=== PATIENT | male | born 1960 | race Caucasian/White ===

== ENCOUNTER 2016-07-22 08:14 | Day surgery (SDC) | payer BC, OTHER ==
[2016-07-17 12:20] VITALS: BMI 23.3
[~2016-07-22 08:14] MED LIST: LACTATED RINGERS 1,000 ML IV SCH; LIDOCAINE 1% 20 ML VIAL (10MG/ML) FOR IV START INTRADERMA PRN
[2016-07-22 08:48] VITALS: RESP 16; TEMP 97.8
[2016-07-22] MEDS ORDERED: PROPOFOL 10 MG/ML 20 ML VIAL IV ONE (09:07)
[2016-07-22] MEDS ORDERED: LIDOCAINE 1% INJ 10MG/ML (20 ML MDV) ONE (09:07)
--- NOTE | 2016-07-22 09:43 | P.PCN ---
Date of Procedure: 07/22/16 Procedure(s) Performed: Procedure: Colonoscopy and polypectomy. Preoperative diagnosis: Screening for neoplasia. Postoperative diagnosis: Distal sigmoid polyp snared but no large polyps or cancer. Preparation: HalfLytely prep. Sedation: Was provided by anesthesia. Brief clinical history: The patient is a 55-year-old male who is referred for this evaluation for screening for neoplasia age being his risk factor. He has no abdominal complaints, bleeding or anemia. This would be his first colonoscopy. Procedure: With the patient on his left lateral decubitus position and after informed consent and adequate sedation, the perianal area was inspected and it did not show any fissures or fistulas. There were no masses felt on digital rectal examination. The Olympus CFQ 160L video colonoscope was then inserted in the rectum in the usual fashion and advanced to the cecum. The mucosa appeared healthy. There was no obvious diverticular disease or other abnormalities with the exception of a small to medium-sized polyp in the distal sigmoid which was snared and retrieved by suction. I retroflexed endoscope in the rectum before the endoscope was withdrawn. The patient tolerated the procedure well. Plan: The patient was reassured. He will follow up with you as planned and I recommended repeat exam in 5 years.
[2016-07-22 10:07] VITALS: BP 138/87; PULSE 97
== END 2016-07-22 10:15 | disposition home or self-care (01) ==
LOC: ORWHC2ENDO 08:14
DX: Z12.11 Encounter for screening for malignant neoplasm of colon (principal); D12.5 Benign neoplasm of sigmoid colon; I10 Essential (primary) hypertension; Z79.899 Other long term (current) drug therapy; Z87.891 Personal history of nicotine dependence
CPT/HCPCS: 45385; 88305; J2001; J2704

== ENCOUNTER → 2017-06-26 | Outpatient (CLI) | payer OTHER ==
--- NOTE | 2017-06-26 11:25 | XR ---
EXAMINATION TYPE: XR chest 2V DATE OF EXAM: 06/26/2017 COMPARISON: 06/20/2017 TECHNIQUE: PA and lateral views submitted. HISTORY: Pneumothorax FINDINGS: Right-sided chest tube noted. A lucency in the right apex may be related to large bulla. No definite pleural reflection. Hypertrophic change of the spine. Left lung is clear. Hypertrophic and degenerati ve change of the spine noted. Postsurgical change left shoulder. IMPRESSION: 1. Right-sided chest tube. Lucency involving the right apex is stable but no definite pleural reflect ion and may represent a large bulla. No definite sizable pneumothorax. Consider CT scan for further a ssessment if clinically warranted.
== END | disposition home or self-care (01) ==
LOC: RADXRMAIN 10:49
PROVIDERS: ATTEND Family Medicine
DX: J93.9 Pneumothorax, unspecified (principal); Z97.8 Presence of other specified devices
CPT/HCPCS: 71046

== ENCOUNTER → 2017-08-17 | Outpatient (CLI) | payer OTHER ==
[2017-08-17 15:39] LABS: Appearance,Urine Clear (Clear); Basophils # (A) 0.1 k/uL (0-0.2); Basophils % (A) 1 %; Bilirubin,Urine Negative (Negative); Blood,Urine Negative (Negative); Color,Urine Light Yellow; Eosinophils # (A) 0.5 k/uL (0-0.7); Eosinophils % (A) 4 %; Glucose,Urine (UA) Negative (Negative); HCT 43.3 % (39.0-53.0); Ketones,Urine Negative (Negative); Leukocyte Esterase,Urine Negative (Negative); Lymphocytes # (A) 1.4 k/uL (1.0-4.8); Lymphocytes % (A) 13 %; MCH 29.5 pg (25.0-35.0); MCHC 32.4 g/dL (31.0-37.0); MCV 91.2 fL (80.0-100.0); Mean Platelet Volume 6.6; Monocytes # (A) 0.9 k/uL (0-1.0); Monocytes % (A) 8 %; Neutrophils % (A) 73 %; Nitrite,Urine Negative (Negative); Platelet Count 400 k/uL (150-450); Protein,Urine Negative (Negative); RBC 4.74 m/uL (4.30-5.90); Urobilinogen,Urine <2.0 mg/dL (<2.0); WBC 11.1 k/uL (3.8-10.6)
--- NOTE | 2017-08-17 15:40 | CT ---
EXAMINATION TYPE: CT chest w con DATE OF EXAM: 08/17/2017 COMPARISON: 06/26/2017 HISTORY: Spontaneous pneumothorax. CT DLP: 575 mGycm. Automated Exposure Control for Dose Reduction was Utilized. TECHNIQUE: CT scan of the thorax is performed following with IV Contrast, patient injected with 100 mL of Isovue M300. FINDINGS: LUNGS: There is extensive bullous emphysematous changes most pronounced within the right lung apex wi th lung markings throughout no evidence of pneumothorax. No focal consolidation, pleural effusion or pulmonary vascular congestion is seen. No bronchiectasis or peribronchial cuffing. Central airways pa tent. MEDIASTINUM: There are no greater than 1 cm hilar or mediastinal lymph nodes. No pericardial effusi on is seen. Mild coronary artery calcifications are noted. OTHER: There is heterogeneity of the left thyroid gland posteriorly incidentally noted minimal gyneco mastia seen bilaterally, right greater than left in a retroareolar location. IMPRESSION: 1. Severe bullous emphysematous disease most pronounced within the right lung apex with no evidence o f pneumothorax. 2. No focal consolidation, pleural effusion or pulmonary vascular congestion. 3. Heterogeneity of the left thyroid gland posteriorly. Thyroid ultrasound could be performed for fur ther evaluation.
[2017-08-17 15:48] LABS: Anion Gap 12 mmol/L; Blood Urea Nitrogen 14 mg/dL (9-20); Carbon Dioxide 27 mmol/L (22-30); Chloride 103 mmol/L (98-107); Potassium 4.4 mmol/L (3.5-5.1); Sodium 142 mmol/L (137-145)
== END | disposition home or self-care (01) ==
LOC: RADCTMAIN 14:33
PROVIDERS: ATTEND Thoracic Surgery (Cardiothoracic Vascular Surgery)
DX: J43.8 Other emphysema (principal); Z01.812 Encounter for preprocedural laboratory examination
CPT/HCPCS: 80051; 82565; 84520; 85025; 81003; 71260; 36415; Q9967

== ENCOUNTER 2017-08-20 05:41 | Inpatient (IN) | payer OTHER ==
[~2017-08-20 05:41] MED LIST changes: -LACTATED RINGERS 1,000 ML IV SCH; -LIDOCAINE 1% 20 ML VIAL (10MG/ML) FOR IV START INTRADERMA PRN; +ceFAZolin IN SWFI 2 GM/20 ML SYRINGE IVP ONE
[2017-08-20] MEDS ORDERED: ONDANSETRON 4 MG/2 ML VIAL IVP ONE (05:51)
[2017-08-20] MEDS ORDERED: MIDAZOLAM 2 MG/2 ML VIAL IV PRN (05:51)
[2017-08-20] MEDS ORDERED: LACTATED RINGERS 1,000 ML IV SCH (05:51)
[2017-08-20] MEDS ORDERED: DEXAMETHASONE SOD PHOSPHATE 10 MG/ML 1 ML VIAL IV ONE (05:51)
[2017-08-20] MEDS ORDERED: MORPHINE SULFATE 4 MG/ML SYRINGE IV PRN (05:51)
[2017-08-20] MEDS ORDERED: BUPIVACAINE (PF) 0.5% 30 ML VIAL SQ ONE ×2 (08:21)
--- NOTE | 2017-08-20 09:28 | P.OP ---
Date of Procedure: 08/20/17 Preoperative Diagnosis: Re-current right spontaneous pneumothorax, right apical blebs, COPD. Postoperative Diagnosis: Same Procedure(s) Performed: Right thoracoscopy with stapling of apical blebs and mechanical pleurodesis Implants: Pericardial reinforced naren were used Anesthesia: SANJAY Surgeon: Facundo Guthrie Rent [employer] Housing Investigator #1: James Patrick Estimated Blood Loss (ml): 10 IV fluids (ml): 800 Urine output (ml): 300 Pathology: other ([place] right upper lobe) Condition: stable Disposition: PACU Indications for Procedure: Patient is a 56-year-old male who initially presented with shortness of breath in early July he had known COPD he was found to have a large right-sided pneumothorax Thora vent was placed with good lung reexpansion there was a persistent air leak the patient was discharged home the airleak resolved Thora vent was discontinued in the office and follow-up chest x-ray demonstrated no evidence of pneumothorax about 2 weeks later the patient again became short of breath went to see his primary care physician. He had a moderate size pneumothorax. At that time patient refused admission to the hospital and was followed with serial chest x-rays and over a 2 week the pneumothorax improved markedly. Primary care physician sent him to see me in the office. My recommendation at that time was that he consider thoracoscopy with stapling of blebs as the likelihood of further recurrences of pneumothorax was very high. Patient was not immediately interested in surgery at that time and left the office to think about his options. Last week, he called the office and stated that he had decided to have the surgery. He was scheduled electively. Computed tomography scan was obtained which demonstrated resolution of the pneumothorax with a large area of complex blebs in the apex of the right upper lobe. Operative Findings: Large area of blebs in the apex of the left upper lobe was confirmed. There were mild soft adhesions of the upper lobe to the chest wall. There was a single dense adhesion at the very top of the apex of the lung. Description of Procedure: The patient was brought to the operating room and placed supine on the operating table, anesthetized and intubated with a double-lumen endotracheal tube. Tube was positioned with fiberoptic bronchoscopy, no endobronchial lesions were noted. Tube was secured and the patient was turned in the left lateral decubitus position and the right chest sterilely prepped and draped. 3 one-inch incisions were made in the fifth to sixth interspaces. These were carried down through skin and subcutaneous tissue into the right pleural space. Single lung ventilation had been initiated prior to entering the pleural space. Great care was taken not to injure the long at the entry site. On exploration of the chest, there were very mild adhesions of the upper lobe apical region to the surrounding ribs 1 through 3. This was easily taken down with blunt dissection. At the very apex of the lung there was a small less than 1 cm area of dense adhesion. This we took down the adhesions, it became quite evident where the bleb disease was. The remaining lung became atelectatic but the bleb disease area remained inflated. A clamp was placed across the base of the blebs in order to clearly demarcate where the normal lung tissue began and Endo ZORAIDA reinforced staple line was created proximal to the clamp in order to be sure that we were stapling through good lung tissue. Multiple firings of the stapler were required in order to completely resect the area of blebs. On completion of the resection of the blebs, the dense adhesion at the apex was taken down with electrocautery and the specimen was placed in an Endo Catch bag and brought out onto the field. Careful examination of the specimen confirmed that the staple line was through normal lung tissue and not through bleb. A 28-Slovak chest tube was placed through separate stab incision and positioned posterior apically. It was secured at the skin with a 0 Ethibond suture. The lung was inflated under thoracoscopic vision. No air leaks were noted. Rib blocks were performed at the level of the incisions with half percent Marcaine. Incisions were then closed with layers of Vicryl suture. Chest tube was connected to a Pleur-evac and skin glue and dry sterile dressings were applied. Patient was turned supine and extubated in the operating room, transferred to the recovery room in stable condition.
--- NOTE | 2017-08-20 09:43 | XR ---
EXAMINATION TYPE: XR chest 1V portable DATE OF EXAM: 08/20/2017 COMPARISON: 06/26/2017 HISTORY: Chest tube insertion TECHNIQUE: Single frontal view of the chest is obtained. FINDINGS: Emphysematous changes are noted there is a right-sided chest tube with approximately 5-10% right-sided pneumothorax. Subcutaneous emphysema noted. Left lung clear. Heart size stable. There is increased attenuation along the medial margin of the right upper lobe. IMPRESSION: 1. A 5-10% right apical pneumothorax. 2. Subsegmental consolidation medial aspect right upper lobe new from prior exam correlate clinically .
[2017-08-20] MEDS ORDERED: MORPHINE SULFATE 2 MG/ML SYRINGE IV PRN (13:10)
[2017-08-20] MEDS ORDERED: HYDROcodone/APAP 5-325MG 1 EACH TAB PO PRN ×2 (13:10)
[2017-08-20] MEDS ORDERED: ONDANSETRON 4 MG/2 ML VIAL IVP PRN (13:10)
[2017-08-20] MEDS ORDERED: IPRATROPIUM-ALBUTEROL 3 ML NEB IH PRN (13:10)
[2017-08-20] MEDS ORDERED: MORPHINE SULFATE 4MG/4ML SYRG IV PRN (13:16)
[2017-08-20] MEDS: IPRATROPIUM-ALBUTEROL 3 ML NEB IH SCH ×3 (13:29→19:32)
[2017-08-20] MEDS: KETOROLAC 30 MG/ML 1 ML VIAL IVP SCH ×2 (13:46→19:17)
--- NOTE | 2017-08-20 15:13 | P.CNPUL ---
History of Present Illness Consult date: 08/20/17 Requesting physician: Facundo Guthrie Reason for consult: other (Status post right thoracoscopy with stapling of apical blebs and mechanical pleurodesis. Postoperative day #0) Chief complaint: Recurrent episodes of spontaneous pneumothorax. History of present illness: This is a 56-year-old white male with known history of COPD, normally sees Dr. Stover for his COPD. Back in July, patient had a right sided spontaneous pneumothorax, and he required at the time a thoravent placement. Lung was expanded, however the patient continues to have persistent air leak and he was eventually discharged home with thoravent in place. Follow-up chest x-ray 2 weeks later revealed a moderate sized right-sided pneumothorax. Patient was readmitted to the hospital, and he was seen at the time by Dr. Guthrie who recommended thoracoscopy with stapling of blebs for prevention of further recurrence of pneumothorax. Patient has been doing well since then, but recently he called back Dr. Guthrie and agreed to go ahead with the surgery which was scheduled electively and was done today. Outpatient computed tomography scan of the chest showed complex blebs in the apex of the right upper lobe. Today the patient had uneventful surgery, he was transferred to [facility], and I was asked to see him on consultation. Chest tube is in place, air leak is noted in the Pleur-evac, patient is in no distress, chest x-ray shows complete expansion of the right lung and tip of the chest tube in the right apex. Patient is relatively asymptomatic. Denies any chest pain, no cough no wheezing no shortness of breath, no headache no blurred vision no dizziness no nausea no vomiting no abdominal pain. Review of Systems 14 point review of systems were obtained, please refer to pertinent positives and negatives in HPI. Past Medical History Past Medical History: COPD, Hypertension Additional Past Medical History / Comment(s): "FAST PULSE." RT SPONTANEOUS PNEUMOTHORAX 06/18/17, THEN LEAK 07/30/17. History of Any Multi-Drug Resistant Organisms: None Reported Past Surgical History: Orthopedic Surgery Additional Past Surgical History / Comment(s): LT shoulder surgery for dislocation, 07/2016 colonoscopy/benign polypectomy. RT CHEST TUBE. Past Anesthesia/Blood Transfusion Reactions: No Reported Reaction Smoking Status: Former smoker - Past Family History Father Family Medical History: Cancer Additional Family Medical History / Comment(s): Father of metastatic bone cancer at the age of 61 yrs. Mother Family Medical History: No Reported History Additional Family Medical History / Comment(s): Mother was healthy and lived to be 89yrs old. Medications and Allergies Home Medications Medication Instructions Recorded Confirmed Type Multivitamin [Men's Multi-Vitamin] 1 tab PO DAILY 07/17/16 08/20/17 History Aspirin EC [Ecotrin Low Dose] 81 mg PO DAILY 08/17/17 08/20/17 History Ipratropium [place] [Atrovent Hfa] 2 puff INHALATION RT-TID PRN 08/17/17 History Verapamil HCl [Verapamil ER] 240 mg PO DAILY 08/17/17 08/20/17 History Albuterol Inhaler [Ventolin Hfa 2 puff INHALATION RT-Q6H PRN 08/20/17 08/20/17 History Inhaler] Allergies Allergy/AdvReac Type Severity Reaction Status Date / Time No Known Allergies Allergy Verified 08/20/17 14:10 Physical Exam Vitals: Vital Signs Temp Pulse Pulse Pulse Resp BP Pulse Ox 08/20/17 13:42 70 08/20/17 13:34 68 08/20/17 13:14 18 130/66 99 08/20/17 12:30 67 16 131/79 100 08/20/17 12:00 58 L 16 138/86 100 08/20/17 11:45 54 L 16 119/79 100 08/20/17 11:30 67 16 130/77 99 08/20/17 11:15 55 L 16 133/77 99 08/20/17 11:00 61 16 128/79 98 08/20/17 10:45 57 L 16 135/74 98 08/20/17 10:30 68 16 148/82 93 L 08/20/17 10:15 72 16 143/84 94 L 08/20/17 10:00 71 16 140/80 96 08/20/17 09:47 69 16 155/79 100 08/20/17 09:34 66 16 157/74 100 08/20/17 09:18 97.3 F L 73 16 163/81 100 08/20/17 06:15 99.0 F 109 H 16 153/94 98 Intake and Output 08/20/17 08/20/17 08/20/17 06:59 14:59 22:59 Intake Total 500 600 Output Total 120 Balance 500 480 Intake: IV 500 600 Output: Urine 60 Pleural Fluid 40 Estimated Blood Loss 20 Physical Exam: Revealed a 56-year-old white male, very pleasant, in no distress. Head: Atraumatic normocephalic. Eyes: PERRLA, EOMI, no icterus. HEENT:[Neck is supple.] [No neck masses.] [No thyromegaly.] [No JVD.] Chest: [Clear throughout, no crackles, no rhonchi, no wheezes.] Right sided chest tube is noted, air leak was also noted. Cardiac Exam: [Normal S1 and S2, no S3 gallop, no murmur.] Abdomen: [Soft, nontender, no megaly, no rebound, no guarding, normal bowel sounds.] Extremities: [No clubbing, no edema, no cyanosis.] Neurological Exam: [No focal neurologic deficit.] Psychiatric: Appropriate affect and mood, normal mental status examination. Lymphatics: No lymphadenopathy. Results - Diagnostic Findings Chest x-ray: image reviewed (Postoperative chest x-ray showed a 5% right-sided apical pneumothorax, and chest tube in adequate placement.) Assessment and Plan Assessment: Impression: 1 status post right thoracoscopy with stapling of apical blebs and mechanical pleurodesis postoperative day #0. 2 recurrent episodes of right sided spontaneous pneumothorax 3 history of COPD 4 history of left shoulder dislocation 5 history of benign essential hypertension. Recommendation: Continue present treatment plan, continue chest tube on suction , bronchodilators, incentive spirometry, reevaluate patient and recheck chest x- ray in a.m. We'll continue to follow. Time with Patient: Greater than 30
[2017-08-20] MEDS: DEXTROSE 5%-0.45% NACL 1,000 ML IV SCH (17:35)
[2017-08-20] MEDS: ceFAZolin IN SWFI 2 GM/20 ML SYRINGE IVP SCH (17:35)
[2017-08-20] MEDS ORDERED: fentaNYL (PF) 50 MCG/ML 2 ML AMP ONE (17:52)
[2017-08-20] MEDS ORDERED: NEOSTIGMINE 1 MG/ML 10 ML VIAL ONE (17:52)
[2017-08-20] MEDS ORDERED: GLYCOPYRROLATE 0.2 MG/ML 2 ML VIAL ONE (17:52)
[2017-08-20] MEDS ORDERED: MIDAZOLAM 2 MG/2 ML VIAL ONE (17:52)
[2017-08-20] MEDS ORDERED: PHENYLEPHRINE-0.9% NACL SYG 1 MG/10 ML SYRINGE ONE (17:52)
[2017-08-20] MEDS ORDERED: PROPOFOL 10 MG/ML 20 ML VIAL IV ONE (17:52)
[2017-08-20] MEDS ORDERED: SUCCINYLCHOLINE CHLORIDE 100 MG/5 ML SYR IV ONE (17:52)
[2017-08-21] MEDS: KETOROLAC 30 MG/ML 1 ML VIAL IVP SCH ×5 (02:22→23:42)
[2017-08-21] MEDS: ceFAZolin IN SWFI 2 GM/20 ML SYRINGE IVP SCH (04:04)
[2017-08-21 06:43] LABS: Basophils % (A) 0 %; Eosinophils # (A) 0.3 k/uL (0-0.7); Eosinophils % (A) 2 %; HCT 37.3 % (39.0-53.0); HGB 12.3 gm/dL (13.0-17.5); Lymphocytes % (A) 8 %; MCH 30.5 pg (25.0-35.0); MCHC 33.1 g/dL (31.0-37.0); MCV 92.2 fL (80.0-100.0); Mean Platelet Volume 6.9; Monocytes % (A) 9 %; Neutrophils # (A) 9.2 k/uL (1.3-7.7); Neutrophils % (A) 80 %; Platelet Count 323 k/uL (150-450); RBC 4.05 m/uL (4.30-5.90); WBC 11.5 k/uL (3.8-10.6)
[2017-08-21] MEDS: IPRATROPIUM-ALBUTEROL 3 ML NEB IH SCH ×4 (07:53→20:08)
[2017-08-21] MEDS: ASPIRIN 81 MG PO SCH (08:04)
[2017-08-21] MEDS: VERAPAMIL SR 240 MG TABLET.ER PO SCH (08:04)
[2017-08-21] MEDS: MULTIVITAMINS, THERA 1 EACH TAB PO SCH (08:04)
[2017-08-21] MEDS ORDERED: MORPHINE ORAL SOLN 10 MG/5 ML CUP PO PRN (08:10)
--- NOTE | 2017-08-21 09:13 | XR ---
EXAMINATION TYPE: XR chest 1V DATE OF EXAM: 08/21/2017 COMPARISON: 08/21/2017 HISTORY: Post VATS TECHNIQUE: Single frontal view of the chest is obtained. FINDINGS: Right-sided chest tube seen with persistent right upper lobe consolidation. Approximate 5- 10% right-sided pneumothorax stable. Left lung clear. Heart size stable. Tiny amount of subcutaneous emphysema noted. Arthropathy of the shoulders. IMPRESSION: 1. Stable right-sided pneumothorax.
[2017-08-21] MEDS: HEPARIN SODIUM,PORCINE 5,000 UNIT/ML 1 ML VIAL SQ SCH ×3 (09:46→23:43)
--- NOTE | 2017-08-21 12:02 | P.PN ---
Subjective Progress Note Date: 08/21/17 Principal diagnosis: Recurrent spontaneous pneumothoraces. Status post right thoracoscopy with stapling of apical blebs and mechanical pleurodesis. This is a 56-year-old white male with known history of COPD, normally sees Dr. Stover for his COPD. Back in July, patient had a right sided spontaneous pneumothorax, and he required at the time a thoravent placement. Lung was expanded, however the patient continues to have persistent air leak and he was eventually discharged home with thoravent in place. Follow-up chest x-ray 2 weeks later revealed a moderate sized right-sided pneumothorax. Patient was readmitted to the hospital, and he was seen at the time by Dr. Guthrie who recommended thoracoscopy with stapling of blebs for prevention of further recurrence of pneumothorax. Patient has been doing well since then, but recently he called back Dr. Guthrie and agreed to go ahead with the surgery which was scheduled electively and was done today. Outpatient computed tomography scan of the chest showed complex blebs in the apex of the right upper lobe. Today the patient had uneventful surgery, he was transferred to [facility], and I was asked to see him on consultation. Chest tube is in place, air leak is noted in the Pleur-evac, patient is in no distress, chest x-ray shows complete expansion of the right lung and tip of the chest tube in the right apex. Patient is relatively asymptomatic. Denies any chest pain, no cough no wheezing no shortness of breath, no headache no blurred vision no dizziness no nausea no vomiting no abdominal pain. The patient is seen again today 08/21/2017 in follow-up on the selective care unit. Postoperative day #1. He is currently awake and alert in no acute distress. He denies any worsening shortness of breath, cough or congestion. He is maintaining good O2 saturations in the upper 90s on room air. His been afebrile. Hemodynamically stable. White count 11.5. Hemoglobin 12.3. Some discomfort at the surgical site. Today's chest x-ray reveals a stable right- sided pneumothorax. 5-10%. Along with persistent right upper lobe consolidation. Right-sided chest tube in place. Objective - Vital Signs Vital signs: Vital Signs Temp 97 F L 08/21/17 07:59 Pulse 88 08/21/17 11:47 Resp 20 08/21/17 07:59 BP 115/60 08/21/17 07:59 Pulse Ox 97 08/21/17 07:59 Intake & Output 08/20/17 08/21/17 08/21/17 18:59 06:59 18:59 Intake Total 837 Output Total 180 1600 250 Balance 657 -1600 -250 Weight 75 kg Intake: IV 600 Oral 237 Output: Chest Tube Drainage 60 100 Chest Tube Right Lateral 60 100 Chest Drainage 150 Right Anterior Chest 150 Urine 60 1600 Stool 0 0 Pleural Fluid 40 Estimated Blood Loss 20 Other: # Voids 0 1 # Bowel Movements 0 0 - Exam GENERAL EXAM: Alert, active, comfortable in no apparent distress. HEAD: Normocephalic. EYES: Normal reaction of pupils, equal size. NOSE: Clear with pink turbinates. THROAT: No erythema or exudates. NECK: No masses, no JVD. CHEST: No chest wall deformity. Right sided chest tube in place. LUNGS: Equal air entry with crackles in the right base. Diminished. CVS: S1 and S2 normal with no audible murmur, regular rhythm. ABDOMEN: No hepatosplenomegaly, normal bowel sounds, no guarding or rigidity. SPINE: No scoliosis or deformity SKIN: No rashes CENTRAL NERVOUS SYSTEM: No focal deficits, tone is normal in all 4 extremities. EXTREMITIES: There is no peripheral edema. No clubbing, no cyanosis. Peripheral pulses are intact. - Labs CBC & Chem 7: 08/21/17 06:08 Labs: Abnormal Lab Results - Last 24 Hours (Table) 08/21/17 Range/Units 06:08 WBC 11.5 H (3.8-10.6) k/uL RBC 4.05 L (4.30-5.90) m/uL Hgb 12.3 L (13.0-17.5) gm/dL Hct 37.3 L (39.0-53.0) % Neutrophils # 9.2 H (1.3-7.7) k/uL Assessment and Plan Assessment: Impression: 1 status post right thoracoscopy with stapling of apical blebs and mechanical pleurodesis postoperative day #1. 2 recurrent episodes of right sided spontaneous pneumothorax previous Thora- Vent placement 3 history of COPD 4 history of left shoulder dislocation 5 history of benign essential hypertension. Recommendation: The patient was seen and evaluated by Dr. Disla. Chest x-ray was reviewed. Patient's chest tube remains to suction. Positive air leak. Repeat a chest x- ray in the a.m. Continue bronchodilators. Continue to encourage increased use of the incentive spirometer and cough and deep breathing exercises. We'll continue to follow and make further recommendations based on his clinical status. I, the cosigning physician, performed a history & physical examination of the patient. Lungs sounds have crackles in the right posterior base. Diminished. Maintaining good O2 saturations in the 90s on room air. I discussed the assessment and plan of care with my nurse practitioner, Nicolasa Mandel. I attest to the above note as dictated by her.
--- NOTE | 2017-08-21 14:10 | P.PN ---
Subjective Progress Note Date: 08/21/17 Principal diagnosis: Recurrent right spontaneous pneumothorax, right apical blebs, COPD, history of benign essential hypertension, and history of left shoulder dislocation. POD #1 right thoracoscopy with stapling of apical blebs and mechanical pleurodesis. Objective - Vital Signs Vital signs: Vital Signs Temp 97 F L 08/21/17 07:59 Pulse 88 08/21/17 11:47 Resp 20 08/21/17 07:59 BP 115/60 08/21/17 07:59 Pulse Ox 97 08/21/17 07:59 Intake & Output 08/20/17 08/21/17 08/21/17 18:59 06:59 18:59 Intake Total 837 Output Total 180 1600 250 Balance 657 -1600 -250 Weight 75 kg Intake: IV 600 Oral 237 Output: Chest Tube Drainage 60 100 Chest Tube Right Lateral 60 100 Chest Drainage 150 Right Anterior Chest 150 Urine 60 1600 Stool 0 0 Pleural Fluid 40 Estimated Blood Loss 20 Other: # Voids 0 1 # Bowel Movements 0 0 - Constitutional General appearance: Present: cooperative, no acute distress, thin - EENT ENT: Present: hearing grossly normal - Neck Details: No JVD, no lymphadenopathy, neck is supple, no stridor. - Respiratory Details: Respirations are symmetrical and nonlabored. Lungs sounds with expiratory wheezes throughout, diminished bilateral bases. Oxygen saturations are 99% on 2 L nasal cannula. He is achieving 2500 mL on his incentive spirometry. Right pleural chest tube to low continuous wall suction -20 cm H2O. Continuous air leak present. Draining thin serosanguineous drainage. 210 mL output in the last 24 hours. - Cardiovascular Details: Regular rhythm and rate. S1 and S2 present, negative for S3, gallop or murmur. Remote telemetry showing normal sinus rhythm heart rate 83. Knee-high MARYSE hose and sequential compression devices in place was bilateral lower extremities. No edema present. - Gastrointestinal Gastrointestinal Comment(s): Abdomen is soft, nontender and nondistended. Active bowel sounds to all 4 abdominal quadrants. Tolerating oral intake. Passing flatus. - Genitourinary Genitourinary Comment(s): Adequate urine output. Clear yellow urine. 1200 mL of urine in the last 8 hours. - Integumentary Integumentary Comment(s): Skin is warm and dry. No clubbing or cyanosis present. Right chest incisions clean dry and approximated. No drainage present. Dressings clean and dry. - Neurologic Neurologic: Present: CNII-XII intact - Musculoskeletal Musculoskeletal: Present: gait normal, strength equal bilaterally - Psychiatric Psychiatric: Present: A&O x's 3, appropriate affect, intact judgment & insight - Allied health notes Allied health notes reviewed: nursing - Labs CBC & Chem 7: 08/21/17 06:08 Labs: Abnormal Lab Results - Last 24 Hours (Table) 08/21/17 Range/Units 06:08 WBC 11.5 H (3.8-10.6) k/uL RBC 4.05 L (4.30-5.90) m/uL Hgb 12.3 L (13.0-17.5) gm/dL Hct 37.3 L (39.0-53.0) % Neutrophils # 9.2 H (1.3-7.7) k/uL - Imaging and Cardiology Chest x-ray: report reviewed, image reviewed Assessment and Plan (1) Pneumothorax, right Current Visit: Yes Status: Acute Code(s): J93.9 - PNEUMOTHORAX, UNSPECIFIED SNOMED Code(s): 375570787 (2) COPD (chronic obstructive pulmonary disease) Current Visit: Yes Status: Acute Code(s): J44.9 - CHRONIC OBSTRUCTIVE PULMONARY DISEASE, UNSPECIFIED SNOMED Code(s): 52436844 (3) Hypertension Current Visit: No Status: Chronic Code(s): I10 - ESSENTIAL (PRIMARY) HYPERTENSION SNOMED Code(s): 98694718 Plan: 1. Encourage use of his incentive spirometry every hour while awake. 2. Pain management per when necessary orders. 3. Pulmonary management per Dr. Disla's recommendations. 4. Continue his right pleural chest tube to low continuous wall suction for another 24 hours. We will try his chest tube on water seal in the a.m. 5. Surgical pathology results pending. 6. GI and DVT prophylaxis. 7. More recommendations to follow as patient progresses in his care. Time with Patient: Greater than 30
[2017-08-21] MEDS: DEXTROSE 5%-0.45% NACL 1,000 ML IV SCH (15:02)
[2017-08-22] MEDS: KETOROLAC 30 MG/ML 1 ML VIAL IVP SCH ×4 (05:45→23:37)
[2017-08-22 06:41] LABS: Basophils % (A) 0 %; Eosinophils # (A) 0.5 k/uL (0-0.7); Eosinophils % (A) 5 %; HCT 36.3 % (39.0-53.0); Lymphocytes # (A) 0.8 k/uL (1.0-4.8); Lymphocytes % (A) 8 %; MCH 30.6 pg (25.0-35.0); MCHC 33.1 g/dL (31.0-37.0); MCV 92.5 fL (80.0-100.0); Mean Platelet Volume 6.8; Monocytes # (A) 0.5 k/uL (0-1.0); Monocytes % (A) 5 %; Neutrophils # (A) 7.9 k/uL (1.3-7.7); Neutrophils % (A) 80 %; Platelet Count 324 k/uL (150-450); RBC 3.93 m/uL (4.30-5.90); RDW 14.2 % (11.5-15.5); WBC 9.8 k/uL (3.8-10.6)
[2017-08-22 07:04] LABS: ALT 31 U/L (21-72); AST 25 U/L (17-59); Alkaline Phosphatase 60 U/L (38-126); Anion Gap 9 mmol/L; Blood Urea Nitrogen 13 mg/dL (9-20); Calcium 8.8 mg/dL (8.4-10.2); Carbon Dioxide 25 mmol/L (22-30); Chloride 104 mmol/L (98-107); Glucose 96 mg/dL (74-99); Potassium 4.6 mmol/L (3.5-5.1); Sodium 138 mmol/L (137-145); Total Bilirubin 0.4 mg/dL (0.2-1.3); Total Protein 5.4 g/dL (6.3-8.2)
--- NOTE | 2017-08-22 07:08 | XR ---
EXAMINATION TYPE: XR chest 1V DATE OF EXAM: 08/22/2017 HISTORY: post VATS. REFERENCE: Previous study dated 08/21/2017. FINDINGS: Right pleural drain remains in place. There has developed significant subcutaneous emphysem a on the right. No definite residual pneumothorax is seen. Limited there is some volume loss in the r ight lung. The left lung is clear. The heart is not enlarged. I suspect a tiny right-sided effusion. IMPRESSION: 1. RESOLUTION OF THE PATIENT'S RIGHT-SIDED PNEUMOTHORAX. 2. WORSENING SUBCUTANEOUS EMPHYSEMA. 3. VOLUME LOSS, RIGHT LUNG. 4. I SUSPECT A SMALL RIGHT-SIDED EFFUSION.
[2017-08-22] MEDS: IPRATROPIUM-ALBUTEROL 3 ML NEB IH SCH ×4 (07:09→19:54)
[2017-08-22] MEDS: HEPARIN SODIUM,PORCINE 5,000 UNIT/ML 1 ML VIAL SQ SCH ×3 (08:47→23:38)
[2017-08-22] MEDS: VERAPAMIL SR 240 MG TABLET.ER PO SCH (08:47)
[2017-08-22] MEDS: ASPIRIN 81 MG PO SCH (08:47)
--- NOTE | 2017-08-22 10:25 | P.PN ---
Subjective Progress Note Date: 08/22/17 Principal diagnosis: Recurrent right spontaneous pneumothorax, right apical blebs, COPD, history of benign essential hypertension, EtOH abuse drinks 3-4 beers per day and history of left shoulder dislocation. POD #1 right thoracoscopy with stapling of apical blebs and mechanical pleurodesis. Patient is sitting up to these bedside. He is in no acute distress. He reports that he drinks about 3-4 beers a day and is worried about going into DTs. He denies any complaints of shortness of breath or pain at this time. He remains with a persistent air leak to his chest tube. He also reports that he feels some crackling to his right chest and right neck under his skin. Objective - Vital Signs Vital signs: Vital Signs Temp 97.0 F L 08/22/17 08:00 Pulse 105 H 08/22/17 08:00 Resp 18 08/22/17 08:00 BP 137/81 08/22/17 08:00 Pulse Ox 94 L 08/22/17 08:00 Intake & Output 08/21/17 08/22/17 08/22/17 18:59 06:59 18:59 Intake Total 240 240 Output Total 1050 1710 Balance -1050 -1470 240 Weight 73.9 kg Intake: Oral 240 240 Output: Chest Tube Drainage 100 60 Chest Tube Right Lateral 100 60 Chest Drainage 150 Right Anterior Chest 150 Urine 800 1650 Stool 0 0 Other: Voiding Method Toilet Toilet Urinal Urinal # Voids 1 - Constitutional General appearance: Present: cooperative, no acute distress - EENT ENT: Present: hearing grossly normal - Neck Details: No JVD, no lymphadenopathy. Subcu emphysema present to his right neck and face. - Respiratory Details: Lung sounds with expiratory wheezes throughout, diminished to his bilateral bases. Respirations are symmetrical nonlabored. Oxygen saturation are 95% on 2 L nasal cannula. He is achieving 2500 mL on his incentive spirometry. Subcu emphysema present to his right anterior and posterior chest, right neck and right face. Right pleural chest tube remains in place to low continuous wall suction -20 cm H2O. Continuous air leak present. 190 mL of thin serosanguineous drainage in the last 24 hours. Chest x-ray from this a.m. demonstrates worsening subcutaneous emphysema on the right. - Cardiovascular Details: Regular rhythm and rate. S1 and S2 present, negative for S3, gallop or murmur. Remote telemetry showing sinus tachycardia heart rate 112. No edema present. Knee-high MARYSE hose and sequential compression devices in place to his bilateral lower extremities. - Gastrointestinal Gastrointestinal Comment(s): Abdomen is soft, nontender nondistended. Active bowel sounds to all 4 abdominal quadrants. Passing flatus. - Genitourinary Genitourinary Comment(s): Adequate urine output. Voiding clear mt urine. 850 mL output in the last 8 hours. - Integumentary Integumentary Comment(s): Skin is warm and dry. No clubbing or cyanosis present. Right chest incisions clean dry and well approximated. No drainage or redness present. - Neurologic Neurologic: Present: CNII-XII intact - Musculoskeletal Musculoskeletal: Present: gait normal, strength equal bilaterally - Psychiatric Psychiatric: Present: A&O x's 3, appropriate affect, intact judgment & insight - Allied health notes Allied health notes reviewed: nursing - Labs CBC & Chem 7: 08/22/17 05:46 08/22/17 05:46 Labs: Abnormal Lab Results - Last 24 Hours (Table) 08/22/17 08/22/17 Range/Units 05:46 05:46 RBC 3.93 L (4.30-5.90) m/uL Hgb 12.0 L (13.0-17.5) gm/dL Hct 36.3 L (39.0-53.0) % Neutrophils # 7.9 H (1.3-7.7) k/uL Lymphocytes # 0.8 L (1.0-4.8) k/uL Creatinine 0.62 L (0.66-1.25) mg/dL Total Protein 5.4 L (6.3-8.2) g/dL Albumin 3.0 L (3.5-5.0) g/dL - Imaging and Cardiology Chest x-ray: report reviewed, image reviewed Assessment and Plan (1) Pneumothorax, right Current Visit: Yes Status: Acute Code(s): J93.9 - PNEUMOTHORAX, UNSPECIFIED SNOMED Code(s): 888188821 (2) COPD (chronic obstructive pulmonary disease) Current Visit: Yes Status: Acute Code(s): J44.9 - CHRONIC OBSTRUCTIVE PULMONARY DISEASE, UNSPECIFIED SNOMED Code(s): 52115239 (3) Hypertension Current Visit: No Status: Chronic Code(s): I10 - ESSENTIAL (PRIMARY) HYPERTENSION SNOMED Code(s): 28778892 Plan: 1. Encourage use of his incentive spirometry every hour while awake. 2. Pain management per when necessary orders. 3. Pulmonary management per Dr. Disla's recommendations. 4. Continue his right pleural chest tube to low continuous wall suction. 5. Surgical pathology results pending. 6. GI and DVT prophylaxis. 7. We will add to his evening meal 1 can of [place] Light as the patient drinks 3 or 4 beers daily. He was started on folic acid 1 mg by mouth daily at noon and thiamine 100 mg by mouth daily at noon. 8. We will monitor daily chest x-rays. 9. More recommendations to follow as patient progresses in his care. Time with Patient: Greater than 30
--- NOTE | 2017-08-22 11:54 | P.PN ---
Subjective Progress Note Date: 08/22/17 Principal diagnosis: Recurrent spontaneous pneumothoraces. Status post right thoracoscopy with stapling of apical blebs and mechanical pleurodesis. This is a 56-year-old white male with known history of COPD, normally sees Dr. Stover for his COPD. Back in July, patient had a right sided spontaneous pneumothorax, and he required at the time a thoravent placement. Lung was expanded, however the patient continues to have persistent air leak and he was eventually discharged home with thoravent in place. Follow-up chest x-ray 2 weeks later revealed a moderate sized right-sided pneumothorax. Patient was readmitted to the hospital, and he was seen at the time by Dr. Guthrie who recommended thoracoscopy with stapling of blebs for prevention of further recurrence of pneumothorax. Patient has been doing well since then, but recently he called back Dr. Guthrie and agreed to go ahead with the surgery which was scheduled electively and was done today. Outpatient computed tomography scan of the chest showed complex blebs in the apex of the right upper lobe. Today the patient had uneventful surgery, he was transferred to [facility], and I was asked to see him on consultation. Chest tube is in place, air leak is noted in the Pleur-evac, patient is in no distress, chest x-ray shows complete expansion of the right lung and tip of the chest tube in the right apex. Patient is relatively asymptomatic. Denies any chest pain, no cough no wheezing no shortness of breath, no headache no blurred vision no dizziness no nausea no vomiting no abdominal pain. The patient is seen again today 08/21/2017 in follow-up on the selective care unit. Postoperative day #1. He is currently awake and alert in no acute distress. He denies any worsening shortness of breath, cough or congestion. He is maintaining good O2 saturations in the upper 90s on room air. His been afebrile. Hemodynamically stable. White count 11.5. Hemoglobin 12.3. Some discomfort at the surgical site. Today's chest x-ray reveals a stable right- sided pneumothorax. 5-10%. Along with persistent right upper lobe consolidation. Right-sided chest tube in place. The patient is seen again today 08/22/2017 in follow-up on the selective care unit. He is currently awake and alert in no acute distress. He denies any worsening shortness of breath cough or congestion. Right-sided chest tube remains in place. There is still a small air leak. Chest x-ray does reveal resolution of the right-sided pneumothorax. There is some small right pleural effusion. There is increasing subcutaneous emphysema noted. Maintaining good O2 saturations in the 90s on 2 L/m per nasal cannula. He is afebrile. Hemodynamically stable. White count 9.8. Hemoglobin 12.0. Creatinine 0.62. Objective - Vital Signs Vital signs: Vital Signs Temp 97.0 F L 08/22/17 08:00 Pulse 80 08/22/17 11:46 Resp 18 08/22/17 08:00 BP 137/81 08/22/17 08:00 Pulse Ox 94 L 08/22/17 08:00 Intake & Output 08/21/17 08/22/17 08/22/17 18:59 06:59 18:59 Intake Total 240 400 Output Total 1050 1710 Balance -1050 -1470 400 Weight 73.9 kg Intake: Intake, IV Titration 160 Amount Dextrose 5%-0.45% NaCl 1, 160 000 ml @ 40 mls/hr IV . Q24H [facility] Rx#:[id number] Oral 240 240 Output: Chest Tube Drainage 100 60 Chest Tube Right Lateral 100 60 Chest Drainage 150 Right Anterior Chest 150 Urine 800 1650 Stool 0 0 Other: Voiding Method Toilet Toilet Urinal Urinal # Voids 1 1 - Exam GENERAL EXAM: Alert, active, comfortable in no apparent distress. HEAD: Normocephalic. EYES: Normal reaction of pupils, equal size. NOSE: Clear with pink turbinates. THROAT: No erythema or exudates. NECK: No masses, no JVD. CHEST: No chest wall deformity. Right sided chest tube in place. Subcutaneous emphysema palpated. LUNGS: Equal air entry with crackles in the right base. Diminished. CVS: S1 and S2 normal with no audible murmur, regular rhythm. ABDOMEN: No hepatosplenomegaly, normal bowel sounds, no guarding or rigidity. SPINE: No scoliosis or deformity SKIN: No rashes CENTRAL NERVOUS SYSTEM: No focal deficits, tone is normal in all 4 extremities. EXTREMITIES: There is no peripheral edema. No clubbing, no cyanosis. Peripheral pulses are intact. - Labs CBC & Chem 7: 08/22/17 05:46 08/22/17 05:46 Labs: Abnormal Lab Results - Last 24 Hours (Table) 08/22/17 08/22/17 Range/Units 05:46 05:46 RBC 3.93 L (4.30-5.90) m/uL Hgb 12.0 L (13.0-17.5) gm/dL Hct 36.3 L (39.0-53.0) % Neutrophils # 7.9 H (1.3-7.7) k/uL Lymphocytes # 0.8 L (1.0-4.8) k/uL Creatinine 0.62 L (0.66-1.25) mg/dL Total Protein 5.4 L (6.3-8.2) g/dL Albumin 3.0 L (3.5-5.0) g/dL Assessment and Plan Assessment: Impression: 1 status post right thoracoscopy with stapling of apical blebs and mechanical pleurodesis. Subcutaneous emphysema noted. Chest x-ray revealing improved pneumothorax. 2 recurrent episodes of right sided spontaneous pneumothorax previous Thora- Vent placement 3 history of COPD 4 history of left shoulder dislocation 5 history of benign essential hypertension. Recommendation: The patient was seen and evaluated by Dr. Disla. Chest x-ray was reviewed. Positive air leak still. Repeat a chest x-ray in the a.m. Continue bronchodilators. Continue to encourage increased use of the incentive spirometer and cough and deep breathing exercises. We will increase his activity as tolerated. We'll continue to follow and make further recommendations based on his clinical status. I, the cosigning physician, performed a history & physical examination of the patient. Lungs sounds have crackles in the right posterior base. Diminished. Maintaining good O2 saturations in the 90s on 2 L/m per nasal cannula. I discussed the assessment and plan of care with my nurse practitioner, Nicolasa Mandel. I attest to the above note as dictated by her.
[2017-08-22] MEDS: FOLIC ACID 1 MG TAB PO SCH (12:01)
[2017-08-22] MEDS: THIAMINE 100 MG TAB PO SCH (12:01)
[2017-08-22] MEDS: MULTIVITAMINS, THERA 1 EACH TAB PO SCH (12:01)
[2017-08-22 12:30] VITALS: BMI 26.3
[2017-08-23] MEDS: KETOROLAC 30 MG/ML 1 ML VIAL IVP SCH ×4 (06:12→23:27)
[2017-08-23 06:16] LABS: Basophils % (A) 0 %; Eosinophils # (A) 0.7 k/uL (0-0.7); Eosinophils % (A) 6 %; HCT 34.4 % (39.0-53.0); Lymphocytes # (A) 0.8 k/uL (1.0-4.8); Lymphocytes % (A) 7 %; MCH 29.6 pg (25.0-35.0); MCHC 32.1 g/dL (31.0-37.0); MCV 92.1 fL (80.0-100.0); Monocytes # (A) 0.7 k/uL (0-1.0); Monocytes % (A) 6 %; Neutrophils # (A) 9.3 k/uL (1.3-7.7); Neutrophils % (A) 80 %; Platelet Count 284 k/uL (150-450); RBC 3.74 m/uL (4.30-5.90); WBC 11.7 k/uL (3.8-10.6)
[2017-08-23 06:27] LABS: ALT 45 U/L (21-72); AST 38 U/L (17-59); Albumin 2.9 g/dL (3.5-5.0); Alkaline Phosphatase 62 U/L (38-126); Anion Gap 8 mmol/L; Blood Urea Nitrogen 15 mg/dL (9-20); Carbon Dioxide 26 mmol/L (22-30); Chloride 104 mmol/L (98-107); Glucose 95 mg/dL (74-99); Potassium 4.6 mmol/L (3.5-5.1); Sodium 138 mmol/L (137-145); Total Bilirubin 0.5 mg/dL (0.2-1.3); Total Protein 5.2 g/dL (6.3-8.2)
--- NOTE | 2017-08-23 07:05 | XR ---
EXAMINATION TYPE: XR chest 1V portable DATE OF EXAM: 08/23/2017 HISTORY: Postop vats. REFERENCE: Previous study dated 08/22/2017. FINDINGS: Right pleural drain remains in place. There is continuing subcutaneous emphysema on the rig ht. No definite residual pneumothorax is seen. The lungs now appear clear. Pleural space are clear. T he heart is not enlarged. IMPRESSION: I DO NOT SEE A RESIDUAL RIGHT-SIDED PNEUMOTHORAX.
[2017-08-23] MEDS: IPRATROPIUM-ALBUTEROL 3 ML NEB IH SCH ×4 (07:47→19:28)
[2017-08-23] MEDS: ASPIRIN 81 MG PO SCH (08:20)
[2017-08-23] MEDS: VERAPAMIL SR 240 MG TABLET.ER PO SCH (08:20)
[2017-08-23] MEDS: PANTOPRAZOLE 40 MG TABLET PO SCH (08:20)
[2017-08-23] MEDS: HEPARIN SODIUM,PORCINE 5,000 UNIT/ML 1 ML VIAL SQ SCH ×3 (08:20→23:27)
--- NOTE | 2017-08-23 10:14 | P.PN ---
Subjective Progress Note Date: 08/23/17 Principal diagnosis: Recurrent right spontaneous pneumothorax, right apical blebs, COPD, history of benign essential hypertension, EtOH abuse drinks 3-4 beers per day and history of left shoulder dislocation. POD #3 right thoracoscopy with stapling of apical blebs and mechanical pleurodesis. Patient is sitting up to the bedside. He is in no acute distress. He denies any complaints of shortness of breath or pain at this time. He remains with a persistent air leak to his right pleural chest tube. He continues that to feel some crackling to his right chest and right neck under his skin. Oxygen saturations are 94% on room air, he is achieving 3000 mL on his incentive spirometry. Objective - Vital Signs Vital signs: Vital Signs Temp 97 F L 08/23/17 04:00 Pulse 92 08/23/17 07:58 Resp 18 08/23/17 04:00 BP 108/78 08/23/17 04:00 Pulse Ox 94 L 08/23/17 04:00 Intake & Output 08/22/17 08/23/17 08/23/17 18:59 06:59 18:59 Intake Total 1102 200 240 Output Total 1140 1500 Balance -38 -1300 240 Weight 73.9 kg 73.8 kg Intake: Intake, IV Titration 160 Amount Dextrose 5%-0.45% NaCl 1, 160 000 ml @ 40 mls/hr IV . Q24H [facility] Rx#:[id number] Oral 942 200 240 Output: Chest Tube Drainage 40 Chest Tube Right Lateral 40 Chest Urine 1100 1500 Stool 0 Other: Voiding Method Toilet Urinal # Voids 1 1 - Constitutional General appearance: Present: cooperative, no acute distress - EENT ENT: Present: hearing grossly normal - Neck Details: Neck is supple, no JVD, no lymphadenopathy. - Respiratory Details: Respirations symmetrical and nonlabored. Lungs sounds with few scattered crackles to his right chest, diminished to his bilateral bases. Oxygen saturation are 94% on room air. He is achieving 3000 mL on his incentive spirometry. Right pleural chest tube remains in place to low continuous wall suction -20 cm H2O. Continuous air leak present. Draining thin serosanguineous drainage, 130 mL output in the last 24 hours. Subcu emphysema present to his right neck, and right chest. - Cardiovascular Details: Regular rhythm and rate. S1 and S2 present, negative for S3, gallop or murmur. Remote telemetry showing normal sinus rhythm heart rate 98. No edema present. Knee-high SCDs in place to his bilateral lower extremities. - Gastrointestinal Gastrointestinal Comment(s): Abdomen is soft, nontender and nondistended. Active bowel sounds to all 4 abdominal quadrants. Passing flatus. Tolerating oral intake. - Genitourinary Genitourinary Comment(s): Urine output adequate. Voiding clear yellow urine. 1500 mL output in the last 8 hours. - Integumentary Integumentary Comment(s): Skin is warm and dry. No clubbing or cyanosis present. Right chest incisions clean dry and approximated. Scant serosanguineous drainage from around his right pleural chest tube insertion site. - Neurologic Neurologic: Present: CNII-XII intact - Musculoskeletal Musculoskeletal: Present: gait normal, strength equal bilaterally - Psychiatric Psychiatric: Present: A&O x's 3, appropriate affect, intact judgment & insight - Allied health notes Allied health notes reviewed: nursing - Labs CBC & Chem 7: 08/23/17 05:54 08/23/17 05:54 Labs: Abnormal Lab Results - Last 24 Hours (Table) 08/23/17 08/23/17 Range/Units 05:54 05:54 WBC 11.7 H (3.8-10.6) k/uL RBC 3.74 L (4.30-5.90) m/uL Hgb 11.0 L (13.0-17.5) gm/dL Hct 34.4 L (39.0-53.0) % Neutrophils # 9.3 H (1.3-7.7) k/uL Lymphocytes # 0.8 L (1.0-4.8) k/uL Total Protein 5.2 L (6.3-8.2) g/dL Albumin 2.9 L (3.5-5.0) g/dL - Imaging and Cardiology Chest x-ray: report reviewed, image reviewed Assessment and Plan (1) Pneumothorax, right Current Visit: Yes Status: Acute Code(s): J93.9 - PNEUMOTHORAX, UNSPECIFIED SNOMED Code(s): 938326751 (2) COPD (chronic obstructive pulmonary disease) Current Visit: Yes Status: Acute Code(s): J44.9 - CHRONIC OBSTRUCTIVE PULMONARY DISEASE, UNSPECIFIED SNOMED Code(s): 53325936 (3) Hypertension Current Visit: No Status: Chronic Code(s): I10 - ESSENTIAL (PRIMARY) HYPERTENSION SNOMED Code(s): 13978534 Plan: 1. Encourage use of his incentive spirometry every hour while awake. 2. Pain management per when necessary orders. 3. Pulmonary management per Dr. Disla's recommendations. 4. Continue his right pleural chest tube to low continuous wall suction. 5. 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 6. GI and DVT prophylaxis. 7. Continue evening meal 1 can of [place] [employer] as the patient drinks 3 or 4 beers daily. Continue folic acid 1 mg by mouth daily at noon and thiamine 100 mg by mouth daily at noon. 8. We will monitor daily chest x-rays. 9. More recommendations to follow as patient progresses in his care. Time with Patient: Greater than 30
--- NOTE | 2017-08-23 11:35 | P.PN ---
Subjective Progress Note Date: 08/23/17 Principal diagnosis: Recurrent spontaneous pneumothoraces, status post right thoracoscopy and stapling of apical blebs and mechanical pleurodesis. This is a 56-year-old white male with known history of COPD, normally sees Dr. Stover for his COPD. Back in July, patient had a right sided spontaneous pneumothorax, and he required at the time a thoravent placement. Lung was expanded, however the patient continues to have persistent air leak and he was eventually discharged home with thoravent in place. Follow-up chest x-ray 2 weeks later revealed a moderate sized right-sided pneumothorax. Patient was readmitted to the hospital, and he was seen at the time by Dr. Guthrie who recommended thoracoscopy with stapling of blebs for prevention of further recurrence of pneumothorax. Patient has been doing well since then, but recently he called back Dr. Guthrie and agreed to go ahead with the surgery which was scheduled electively and was done today. Outpatient computed tomography scan of the chest showed complex blebs in the apex of the right upper lobe. Today the patient had uneventful surgery, he was [facility] to [facility], and I was asked to see him on consultation. Chest tube is in place, air leak is noted in the Pleur-evac, patient is in no distress, chest x-ray shows complete expansion of the right lung and tip of the chest tube in the right apex. Patient is relatively asymptomatic. Denies any chest pain, no cough no wheezing no shortness of breath, no headache no blurred vision no dizziness no nausea no vomiting no abdominal pain. The patient is seen again today 08/21/2017 in follow-up on the selective care unit. Postoperative day #1. He is currently awake and alert in no acute distress. He denies any worsening shortness of breath, cough or congestion. He is maintaining good O2 saturations in the upper 90s on room air. His been afebrile. Hemodynamically stable. White count 11.5. Hemoglobin 12.3. Some discomfort at the surgical site. Today's chest x-ray reveals a stable right- sided pneumothorax. 5-10%. Along with persistent right upper lobe consolidation. Right-sided chest tube in place. The patient is seen again today 08/22/2017 in follow-up on the selective care unit. He is currently awake and alert in no acute distress. He denies any worsening shortness of breath cough or congestion. Right-sided chest tube remains in place. There is still a small air leak. Chest x-ray does reveal resolution of the right-sided pneumothorax. There is some small right pleural effusion. There is increasing subcutaneous emphysema noted. Maintaining good O2 saturations in the 90s on 2 L/m per nasal cannula. He is afebrile. Hemodynamically stable. White count 9.8. Hemoglobin 12.0. Creatinine 0.62. Reevaluated today on 08/23/2017, patient continues to do relatively well, asymptomatic, continues to have chest tube in place and significant air leak is noted. Lung is fully expanded, subcutaneous emphysema is noted seems to be less today compared to yesterday. CBC is relatively normal basic metabolic profile is normal renal profile is normal. Objective - Vital Signs Vital signs: Vital Signs Temp 97.0 F L 08/23/17 08:00 Pulse 78 08/23/17 08:00 Resp 18 08/23/17 08:00 BP 119/78 08/23/17 08:00 Pulse Ox 95 08/23/17 08:00 Intake & Output 08/22/17 08/23/17 08/23/17 18:59 06:59 18:59 Intake Total 1102 200 240 Output Total 1140 1500 Balance -38 -1300 240 Weight 73.9 kg 73.8 kg Intake: Intake, IV Titration 160 Amount Dextrose 5%-0.45% NaCl 1, 160 000 ml @ 40 mls/hr IV . Q24H [facility] Rx#:[id number] Oral 942 200 240 Output: Chest Tube Drainage 40 Chest Tube Right Lateral 40 Chest Urine 1100 1500 Stool 0 Other: Voiding Method Toilet Urinal # Voids 1 1 - Exam GENERAL EXAM: Alert, active, comfortable in no apparent distress. HEAD: Normocephalic. EYES: Normal reaction of pupils, equal size. NOSE: Clear with pink turbinates. THROAT: No erythema or exudates. NECK: No masses, no JVD. CHEST: No chest wall deformity. Right sided chest tube in place. Subcutaneous emphysema palpated. LUNGS: Equal air entry with crackles in the right base. Diminished. CVS: S1 and S2 normal with no audible murmur, regular rhythm. ABDOMEN: No hepatosplenomegaly, normal bowel sounds, no guarding or rigidity. SPINE: No scoliosis or deformity SKIN: No rashes CENTRAL NERVOUS SYSTEM: No focal deficits, tone is normal in all 4 extremities. EXTREMITIES: There is no peripheral edema. No clubbing, no cyanosis. Peripheral pulses are intact. - Labs CBC & Chem 7: 08/23/17 05:54 08/23/17 05:54 Labs: Abnormal Lab Results - Last 24 Hours (Table) 08/23/17 08/23/17 Range/Units 05:54 05:54 WBC 11.7 H (3.8-10.6) k/uL RBC 3.74 L (4.30-5.90) m/uL Hgb 11.0 L (13.0-17.5) gm/dL Hct 34.4 L (39.0-53.0) % Neutrophils # 9.3 H (1.3-7.7) k/uL Lymphocytes # 0.8 L (1.0-4.8) k/uL Total Protein 5.2 L (6.3-8.2) g/dL Albumin 2.9 L (3.5-5.0) g/dL Assessment and Plan Assessment: Impression: 1 status post right thoracoscopy with stapling of apical blebs and mechanical pleurodesis postoperative day #3 2 recurrent episodes of right sided spontaneous pneumothorax 3 history of COPD 4 history of left shoulder dislocation 5 history of benign essential hypertension. Recommendation: Continue chest tube on suction, patient continues to have the significant air leak, lung is fully expanded, subcutaneous emphysema is noted, not ready for any discharge planning. We'll continue to follow. Time with Patient: Less than 30
[2017-08-23] MEDS: MULTIVITAMINS, THERA 1 EACH TAB PO SCH (12:46)
[2017-08-23] MEDS: FOLIC ACID 1 MG TAB PO SCH (12:47)
[2017-08-23] MEDS: THIAMINE 100 MG TAB PO SCH (12:47)
[2017-08-24] MEDS: KETOROLAC 30 MG/ML 1 ML VIAL IVP SCH ×4 (05:46→23:45)
[2017-08-24 06:06] LABS: Basophils % (A) 0 %; Eosinophils # (A) 0.8 k/uL (0-0.7); Eosinophils % (A) 9 %; HCT 36.9 % (39.0-53.0); Lymphocytes % (A) 10 %; MCHC 32.5 g/dL (31.0-37.0); MCV 92.1 fL (80.0-100.0); Monocytes # (A) 0.7 k/uL (0-1.0); Monocytes % (A) 7 %; Neutrophils % (A) 73 %; Platelet Count 356 k/uL (150-450); RBC 4.01 m/uL (4.30-5.90); WBC 9.6 k/uL (3.8-10.6)
[2017-08-24 06:27] LABS: ALT 51 U/L (21-72); AST 43 U/L (17-59); Albumin 3.2 g/dL (3.5-5.0); Alkaline Phosphatase 68 U/L (38-126); Anion Gap 10 mmol/L; Blood Urea Nitrogen 17 mg/dL (9-20); Calcium 9.5 mg/dL (8.4-10.2); Carbon Dioxide 25 mmol/L (22-30); Chloride 103 mmol/L (98-107); Glucose 89 mg/dL (74-99); Potassium 4.8 mmol/L (3.5-5.1); Sodium 138 mmol/L (137-145); Total Bilirubin 0.5 mg/dL (0.2-1.3); Total Protein 5.9 g/dL (6.3-8.2)
[2017-08-24] MEDS: IPRATROPIUM-ALBUTEROL 3 ML NEB IH SCH ×4 (08:26→21:02)
--- NOTE | 2017-08-24 08:29 | XR ---
EXAMINATION TYPE: XR chest 1V portable DATE OF EXAM: 08/24/2017 COMPARISON: 08/23/2017 HISTORY: Pneumothorax TECHNIQUE: Single frontal view of the chest is obtained. FINDINGS: Stable right-sided pneumothorax and postsurgical changes. Subcutaneous emphysema noted dif fusely. Left lung clear. Heart size stable. Chest tube stable in position. IMPRESSION: 1. Stable less than 10% right-sided apical pneumothorax and diffuse emphysema.
[2017-08-24] MEDS: VERAPAMIL SR 240 MG TABLET.ER PO SCH (09:02)
[2017-08-24] MEDS: PANTOPRAZOLE 40 MG TABLET PO SCH (09:02)
[2017-08-24] MEDS: ASPIRIN 81 MG PO SCH (09:02)
[2017-08-24] MEDS: HEPARIN SODIUM,PORCINE 5,000 UNIT/ML 1 ML VIAL SQ SCH ×3 (09:03→21:41)
--- NOTE | 2017-08-24 09:30 | P.PN ---
Subjective Progress Note Date: 08/24/17 Principal diagnosis: Recurrent right spontaneous pneumothorax, right apical blebs, COPD, history of hypertension, EtOH abuse with 3-4 beers per day, history of left shoulder dislocation. POD #4 right thoracoscopy with stapling of apical blebs and mechanical pleurodesis Patient's currently ambulating as room in no acute distress. States pain is controlled. He is still coughing, but does not feel short of breath. His only complaint is that he is frustrated as he would like to be up to go home. Objective - Vital Signs Vital signs: Vital Signs Temp 97.0 F L 08/24/17 08:00 Pulse 92 08/24/17 08:37 Resp 16 08/24/17 08:00 BP 133/85 08/24/17 08:00 Pulse Ox 96 08/24/17 08:00 Intake & Output 08/23/17 08/24/17 08/24/17 18:59 06:59 18:59 Intake Total 720 240 Output Total 1000 20 60 Balance -280 220 -60 Weight 74.3 kg Intake: Oral 720 240 Output: Chest Tube Drainage 10 Chest Tube Right Lateral 10 Chest Drainage 20 50 Right Anterior Chest 20 50 Urine 1000 Stool 0 Other: Voiding Method Toilet Urinal # Voids 2 # Bowel Movements 1 - Constitutional General appearance: Present: cooperative, no acute distress - Respiratory Details: Lungs sounds diminished in the bases bilaterally, right greater than left. Respirations even, nonlabored. Currently on room air with oxygen saturation 95% . Able to achieve 2750 mL on his incentive spirometry. Right pleural chest tube placed to waterseal this morning, 100 mL thin serous drainage overnight, positive air leak present. Positive subcu air present over the right chest area. - Cardiovascular Details: S1, S2 present. Regular rate and rhythm, sinus rhythm on telemetry. Palpable peripheral pulses bilaterally. No edema present. No calf pain or tenderness noted. SCDs present. - Gastrointestinal Gastrointestinal Comment(s): Abdomen soft, nontender, nondistended. Active bowel sounds 4 quadrants. Tolerating diet. Positive bowel movement. - Genitourinary Genitourinary Comment(s): Continues to void clear, yellow urine. - Integumentary Integumentary Comment(s): Skin is warm and dry without evidence of good perfusion. Right chest tube site covered with dry intact dressing. - Neurologic Neurologic: Present: CNII-XII intact - Musculoskeletal Musculoskeletal: Present: gait normal, strength equal bilaterally - Psychiatric Psychiatric: Present: A&O x's 3, appropriate affect, intact judgment & insight - Allied health notes Allied health notes reviewed: nursing - Labs CBC & Chem 7: 08/24/17 05:40 08/24/17 05:40 Labs: Abnormal Lab Results - Last 24 Hours (Table) 08/24/17 08/24/17 Range/Units 05:40 05:40 RBC 4.01 L (4.30-5.90) m/uL Hgb 12.0 L (13.0-17.5) gm/dL Hct 36.9 L (39.0-53.0) % Eosinophils # 0.8 H (0-0.7) k/uL Total Protein 5.9 L (6.3-8.2) g/dL Albumin 3.2 L (3.5-5.0) g/dL - Imaging and Cardiology Chest x-ray: report reviewed, image reviewed Assessment and Plan (1) COPD (chronic obstructive pulmonary disease) Current Visit: Yes Status: Chronic Code(s): J44.9 - CHRONIC OBSTRUCTIVE PULMONARY DISEASE, UNSPECIFIED SNOMED Code(s): 22875541 (2) Pneumothorax, right Current Visit: Yes Status: Acute Code(s): J93.9 - PNEUMOTHORAX, UNSPECIFIED SNOMED Code(s): 525551327 (3) Alcohol abuse Current Visit: Yes Status: Chronic Code(s): F10.10 - ALCOHOL ABUSE, UNCOMPLICATED SNOMED Code(s): 99617498 (4) Hypertension Current Visit: Yes Status: Chronic Code(s): I10 - ESSENTIAL (PRIMARY) HYPERTENSION SNOMED Code(s): 18314602 (5) Tobacco dependence in remission Current Visit: No Status: Resolved Code(s): F17.201 - NICOTINE DEPENDENCE, UNSPECIFIED, IN REMISSION SNOMED Code(s): 629129402 Plan: 1. Chest tube placed to waterseal this morning. Continue to monitor for resolution of air leak. Will obtain chest x-ray in the morning. 2. Encourage incentive spirometry use 10 times every hour while awake. Encourage continued smoking cessation. 3. Pain management with current medication regimen. 4. GI/DVT prophylaxis. 5. Continue folic acid, thiamine. One beer ordered each evening with dinner. 6. Pulmonary management per Dr. Ireland. 7. More recommendations to follow. Time with Patient: Greater than 30
[2017-08-24] MEDS: FOLIC ACID 1 MG TAB PO SCH (11:25)
[2017-08-24] MEDS: MULTIVITAMINS, THERA 1 EACH TAB PO SCH (11:26)
[2017-08-24] MEDS: THIAMINE 100 MG TAB PO SCH (11:26)
--- NOTE | 2017-08-24 14:21 | P.PN ---
Subjective Progress Note Date: 08/24/17 Principal diagnosis: Status post recurrent spontaneous pneumothorax Progress note dated 08/24/2017 This is a pleasant 56-year-old male with a history of recurrent spontaneous pneumothorax. He recently underwent a VATS procedure with a stapling of the apical blebs consist and mechanical pleurodesis. Still has significant subcutaneous emphysema on the right and also has a significant air leak. He is postop day #4. He's being followed by thoracic surgery. He also has a history of COPD essential hypertension and left shoulder dislocation. He feels well. Does have a chest tube removed. It was placed on waterseal by thoracic surgery despite the significant air leak. Objective - Vital Signs Vital signs: Vital Signs Temp 97.2 F L 08/24/17 11:07 Pulse 92 08/24/17 12:05 Resp 16 08/24/17 12:00 BP 151/77 08/24/17 11:07 Pulse Ox 99 08/24/17 11:07 Intake & Output 08/23/17 08/24/17 08/24/17 18:59 06:59 18:59 Intake Total 720 240 Output Total 1000 20 60 Balance -280 220 -60 Weight 74.3 kg Intake: Oral 720 240 Output: Chest Tube Drainage 10 Chest Tube Right Lateral 10 Chest Drainage 20 50 Right Anterior Chest 20 50 Urine 1000 Stool 0 Other: Voiding Method Toilet Urinal # Voids 2 # Bowel Movements 1 - Exam No acute distress, oriented 3. HEENT examination is grossly unremarkable. Mucous membranes are moist. No oral lesions. Neck supple. Full range of motion. No adenopathy thyromegaly or neck vein distention. Cardiovascular examination reveals regular rhythm rate. S1-S2 normal. No S3 or S4. No discernible murmur noted. Lungs reveal diminished breath sounds on the right. There is subcutaneous emphysema on the right. No wheezes rhonchi or crackles to speak of. Abdomen soft bowel sounds are heard. No masses or tenderness. Extremities are intact. No cyanosis clubbing or edema. Skin is without rash or lesion. Neurologic examination is brief but nonfocal. - Labs CBC & Chem 7: 08/24/17 05:40 08/24/17 05:40 Labs: Abnormal Lab Results - Last 24 Hours (Table) 08/24/17 08/24/17 Range/Units 05:40 05:40 RBC 4.01 L (4.30-5.90) m/uL Hgb 12.0 L (13.0-17.5) gm/dL Hct 36.9 L (39.0-53.0) % Eosinophils # 0.8 H (0-0.7) k/uL Total Protein 5.9 L (6.3-8.2) g/dL Albumin 3.2 L (3.5-5.0) g/dL Assessment and Plan Assessment: Assessment Status post right thoracoscopic stapling of apical blebs and mechanical pleurodesis, postop day #4, for recurrent spontaneous right-sided pneumothorax Postsurgical right-sided subcutaneous emphysema Recurrent episodes of right-sided spontaneous pneumothorax History of COPD History of left shoulder dislocation History of benign essential hypertension Plan: Plan dated 08/24/2017 The patient's doing well. The patient still has a significant air leak. We'll continue to follow. Thoracic surgeries following along. He has significant subcu emphysema on the right side. No additional recommendations are made. He seems very stable. Time with Patient: Less than 30
[2017-08-25] MEDS: PANTOPRAZOLE 40 MG TABLET PO SCH (06:26)
[2017-08-25] MEDS: KETOROLAC 30 MG/ML 1 ML VIAL IVP SCH ×3 (06:26→17:47)
[2017-08-25] MEDS: HEPARIN SODIUM,PORCINE 5,000 UNIT/ML 1 ML VIAL SQ SCH ×3 (07:58→23:29)
[2017-08-25] MEDS: ASPIRIN 81 MG PO SCH (07:59)
[2017-08-25] MEDS: VERAPAMIL SR 240 MG TABLET.ER PO SCH (07:59)
--- NOTE | 2017-08-25 08:12 | P.PN ---
Subjective Progress Note Date: 08/25/17 Principal diagnosis: Recurrent right spontaneous pneumothorax, right apical blebs, COPD, history of hypertension, EtOH abuse with 3-4 beers per day, history of left shoulder dislocation. POD #5 right thoracoscopy with stapling of apical blebs and mechanical pleurodesis Patient's currently sitting up in bed in no acute distress. Eating breakfast. States pain is controlled. He is still coughing, but does not feel short of breath. His chest tube has been off suction for greater than 24 hours. He has been ambulating in the hallway without difficulty. Objective - Vital Signs Vital signs: Vital Signs Temp 97.4 F L 08/25/17 07:39 Pulse 94 08/25/17 08:00 Resp 16 08/25/17 08:00 BP 116/73 08/25/17 07:39 Pulse Ox 95 08/25/17 07:39 Intake & Output 08/24/17 08/25/17 08/25/17 18:59 06:59 18:59 Intake Total 650 Output Total 1460 20 0 Balance -810 -20 0 Weight 73.6 kg Intake: Oral 650 Output: Chest Tube Drainage 10 20 0 Chest Tube Right Lateral 10 20 0 Chest Drainage 50 0 Right Anterior Chest 50 0 Urine 1400 Other: Voiding Method Toilet Urinal # Voids 2 2 - Constitutional General appearance: Present: cooperative, no acute distress - Respiratory Details: Lungs sounds diminished in the bases bilaterally, right greater than left, expiratory wheezes present. Respirations even, nonlabored. Currently on room air with oxygen saturation 96%. Able to achieve 2500 mL on his incentive spirometry. Right pleural chest tube to waterseal, 20 mL thin serous drainage in the last 24 hours, positive air leak present but less than yesterday. Positive subcu air present over the right chest area, more lateral than yesterday. - Cardiovascular Details: S1, S2 present. Regular rate and rhythm, sinus rhythm on telemetry. Palpable peripheral pulses bilaterally. No edema present. No calf pain or tenderness noted. SCDs present. - Gastrointestinal Gastrointestinal Comment(s): Abdomen soft, nontender, nondistended. Active bowel sounds 4 quadrants. Tolerating diet. Positive bowel movement. - Genitourinary Genitourinary Comment(s): Continues to void clear, yellow urine. - Integumentary Integumentary Comment(s): Skin is warm and dry with evidence of good perfusion. Right chest tube site covered with dry intact dressing. - Neurologic Neurologic: Present: CNII-XII intact - Musculoskeletal Musculoskeletal: Present: gait normal, strength equal bilaterally - Psychiatric Psychiatric: Present: A&O x's 3, appropriate affect, intact judgment & insight - Allied health notes Allied health notes reviewed: nursing - Labs CBC & Chem 7: 08/24/17 05:40 08/24/17 05:40 - Imaging and Cardiology Chest x-ray: image reviewed Assessment and Plan (1) COPD (chronic obstructive pulmonary disease) Current Visit: Yes Status: Chronic Code(s): J44.9 - CHRONIC OBSTRUCTIVE PULMONARY DISEASE, UNSPECIFIED SNOMED Code(s): 05437745 (2) Pneumothorax, right Current Visit: Yes Status: Acute Code(s): J93.9 - PNEUMOTHORAX, UNSPECIFIED SNOMED Code(s): 783353355 (3) Alcohol abuse Current Visit: Yes Status: Chronic Code(s): F10.10 - ALCOHOL ABUSE, UNCOMPLICATED SNOMED Code(s): 23738099 (4) Hypertension Current Visit: Yes Status: Chronic Code(s): I10 - ESSENTIAL (PRIMARY) HYPERTENSION SNOMED Code(s): 64739899 (5) Tobacco dependence in remission Current Visit: No Status: Resolved Code(s): F17.201 - NICOTINE DEPENDENCE, UNSPECIFIED, IN REMISSION SNOMED Code(s): 580235644 Plan: 1. Chest tube to waterseal. Continue to monitor for resolution of air leak. Will monitor daily chest x-rays. 2. Encourage incentive spirometry use 10 times every hour while awake. Encourage continued smoking cessation. 3. Pain management with current medication regimen. 4. GI/DVT prophylaxis. 5. Continue folic acid, thiamine. One beer ordered each evening with dinner. 6. Bronchodilators, pulmonary management per Dr. Ireland. 7. More recommendations to follow. Time with Patient: Greater than 30
--- NOTE | 2017-08-25 08:47 | XR ---
EXAMINATION TYPE: XR chest 2V DATE OF EXAM: 08/25/2017 COMPARISON: Prior chest x-ray 08/24/2017 HISTORY: Pneumothorax, chest tube TECHNIQUE: Frontal and lateral views of the chest are obtained. FINDINGS: Right-sided chest tube is present, overlying subcutaneous emphysema is again seen. Only mi nimal apical right pneumothorax is suspected. No evident effusion. Cardiomediastinal silhouette, pulm onary vascularity and ana laura are stable, there are overlying cardiac leads. Prominent lung volumes comp atible with underlying emphysema. IMPRESSION: Essentially stable findings. Minimal right apical pneumothorax with chest tube as descri bed.
[2017-08-25] MEDS: IPRATROPIUM-ALBUTEROL 3 ML NEB IH SCH ×4 (09:16→19:15)
[2017-08-25] MEDS: FOLIC ACID 1 MG TAB PO SCH (11:07)
[2017-08-25] MEDS: MULTIVITAMINS, THERA 1 EACH TAB PO SCH (11:08)
[2017-08-25] MEDS: THIAMINE 100 MG TAB PO SCH (11:08)
--- NOTE | 2017-08-25 12:21 | P.PN ---
Subjective Progress Note Date: 08/25/17 Principal diagnosis: Recurrent spontaneous pneumothoraces. Status post right thoracoscopy with stapling of apical blebs and mechanical pleurodesis. This is a 56-year-old white male with known history of COPD, normally sees Dr. Stover for his COPD. Back in July, patient had a right sided spontaneous pneumothorax, and he required at the time a thoravent placement. Lung was expanded, however the patient continues to have persistent air leak and he was eventually discharged home with thoravent in place. Follow-up chest x-ray 2 weeks later revealed a moderate sized right-sided pneumothorax. Patient was readmitted to the hospital, and he was seen at the time by Dr. Guthrie who recommended thoracoscopy with stapling of blebs for prevention of further recurrence of pneumothorax. Patient has been doing well since then, but recently he called back Dr. Guthrie and agreed to go ahead with the surgery which was scheduled electively and was done today. Outpatient computed tomography scan of the chest showed complex blebs in the apex of the right upper lobe. Today the patient had uneventful surgery, he was transferred to carrier clinic, and I was asked to see him on consultation. Chest tube is in place, air leak is noted in the Pleur-evac, patient is in no distress, chest x-ray shows complete expansion of the right lung and tip of the chest tube in the right apex. Patient is relatively asymptomatic. Denies any chest pain, no cough no wheezing no shortness of breath, no headache no blurred vision no dizziness no nausea no vomiting no abdominal pain. The patient is seen again today 08/21/2017 in follow-up on the selective care unit. Postoperative day #1. He is currently awake and alert in no acute distress. He denies any worsening shortness of breath, cough or congestion. He is maintaining good O2 saturations in the upper 90s on room air. His been afebrile. Hemodynamically stable. White count 11.5. Hemoglobin 12.3. Some discomfort at the surgical site. Today's chest x-ray reveals a stable right- sided pneumothorax. 5-10%. Along with persistent right upper lobe consolidation. Right-sided chest tube in place. The patient is seen again today 08/22/2017 in follow-up on the selective care unit. He is currently awake and alert in no acute distress. He denies any worsening shortness of breath cough or congestion. Right-sided chest tube remains in place. There is still a small air leak. Chest x-ray does reveal resolution of the right-sided pneumothorax. There is some small right pleural effusion. There is increasing subcutaneous emphysema noted. Maintaining good O2 saturations in the 90s on 2 L/m per nasal cannula. He is afebrile. Hemodynamically stable. White count 9.8. Hemoglobin 12.0. Creatinine 0.62. Reevaluated today on 08/23/2017, patient continues to do relatively well, asymptomatic, continues to have chest tube in place and significant air leak is noted. Lung is fully expanded, subcutaneous emphysema is noted seems to be less today compared to yesterday. CBC is relatively normal basic metabolic profile is normal renal profile is normal. Progress note dated 08/24/2017 This is a pleasant 56-year-old male with a history of recurrent spontaneous pneumothorax. He recently underwent a VATS procedure with a stapling of the apical blebs consist and mechanical pleurodesis. Still has significant subcutaneous emphysema on the right and also has a significant air leak. He is postop day #4. He's being followed by thoracic surgery. He also has a history of COPD essential hypertension and left shoulder dislocation. He feels well. Does have a chest tube removed. It was placed on waterseal by thoracic surgery despite the significant air leak. The patient is seen again today 08/25/2017 in follow-up on the selective care unit. He is awake and alert in no acute distress. He's been up ambulating without any significant shortness of breath or dyspnea on exertion. His chest tube remains in place. Continues with a small leak. Chest x-ray remains about the same. Minimal right apical pneumothorax. He is maintaining good O2 saturations in the mid to upper 90s on room air. He's been afebrile. Hemodynamically stable. Objective - Vital Signs Vital signs: Vital Signs Temp 97.1 F L 08/25/17 11:06 Pulse 75 08/25/17 11:56 Resp 14 08/25/17 11:56 BP 111/72 08/25/17 11:06 Pulse Ox 97 08/25/17 11:06 Intake & Output 08/24/17 08/25/17 08/25/17 18:59 06:59 18:59 Intake Total 650 240 Output Total 1460 20 0 Balance -810 -20 240 Weight 73.6 kg Intake: Oral 650 240 Output: Chest Tube Drainage 10 20 0 Chest Tube Right Lateral 10 20 0 Chest Drainage 50 0 Right Anterior Chest 50 0 Urine 1400 Other: Voiding Method Toilet Urinal # Voids 2 2 1 - Exam GENERAL EXAM: Alert, active, comfortable in no apparent distress. HEAD: Normocephalic. EYES: Normal reaction of pupils, equal size. NOSE: Clear with pink turbinates. THROAT: No erythema or exudates. NECK: No masses, no JVD. CHEST: No chest wall deformity. Right sided chest tube in place. Subcutaneous emphysema palpated. LUNGS: Equal air entry with crackles in the right base. Diminished. CVS: S1 and S2 normal with no audible murmur, regular rhythm. ABDOMEN: No hepatosplenomegaly, normal bowel sounds, no guarding or rigidity. SPINE: No scoliosis or deformity SKIN: No rashes CENTRAL NERVOUS SYSTEM: No focal deficits, tone is normal in all 4 extremities. EXTREMITIES: There is no peripheral edema. No clubbing, no cyanosis. Peripheral pulses are intact. - Labs CBC & Chem 7: 08/24/17 05:40 08/24/17 05:40 Assessment and Plan Assessment: Impression: 1 status post right thoracoscopy with stapling of apical blebs and mechanical pleurodesis. Subcutaneous emphysema noted. Chest x-ray revealing improved pneumothorax. 2 recurrent episodes of right sided spontaneous pneumothorax previous Thora- Vent placement 3 history of COPD 4 history of left shoulder dislocation 5 history of benign essential hypertension. Recommendation: The patient was seen and evaluated by Dr. Ireland. Chest x-ray was reviewed. Positive air leak still. Repeat a chest x-ray in the a.m. Continue bronchodilators. Continue to encourage increased use of the incentive spirometer and cough and deep breathing exercises. We will increase his activity as tolerated. We'll continue to follow and make further recommendations based on his clinical status. I, the cosigning physician, performed a history & physical examination of the patient. Lungs sounds have crackles in the right posterior base. Diminished. Maintaining good O2 saturations in the 90s on 2 L/m per nasal cannula. I discussed the assessment and plan of care with my nurse practitioner, Nicolasa Mandel. I attest to the above note as dictated by her.
[2017-08-25] MEDS: IBUPROFEN 600 MG TAB PO SCH (23:32)
[2017-08-26 06:15] VITALS: RESP 16
[2017-08-26] MEDS: IBUPROFEN 600 MG TAB PO SCH ×2 (06:30→12:17)
[2017-08-26] MEDS: PANTOPRAZOLE 40 MG TABLET PO SCH (06:31)
[2017-08-26] MEDS: IPRATROPIUM-ALBUTEROL 3 ML NEB IH SCH ×2 (07:13→11:11)
[2017-08-26] MEDS: HEPARIN SODIUM,PORCINE 5,000 UNIT/ML 1 ML VIAL SQ SCH (08:27)
[2017-08-26] MEDS: VERAPAMIL SR 240 MG TABLET.ER PO SCH (08:28)
[2017-08-26] MEDS: ASPIRIN 81 MG PO SCH (08:28)
--- NOTE | 2017-08-26 08:46 | P.PN ---
Subjective Progress Note Date: 08/26/17 Principal diagnosis: Recurrent right spontaneous pneumothorax, right apical blebs, COPD, history of hypertension, EtOH abuse with 3-4 beers per day, history of left shoulder dislocation. POD #6 right thoracoscopy with stapling of apical blebs and mechanical pleurodesis Patient's currently sitting up in bed in no acute distress. Eating breakfast. States pain is controlled. He is still coughing, but does not feel short of breath. His chest tube has been off suction for greater than 48 hours, air leak is less every day. He has been ambulating in the hallway without difficulty. Objective - Vital Signs Vital signs: Vital Signs Temp 97 F L 08/26/17 04:00 Pulse 92 08/26/17 07:29 Resp 16 08/26/17 04:00 BP 129/90 08/26/17 04:00 Pulse Ox 96 08/26/17 04:00 Intake & Output 08/25/17 08/26/17 08/26/17 18:59 06:59 18:59 Intake Total 713 360 Output Total 22 0 Balance 691 0 360 Weight 74 kg Intake: Oral 713 360 Output: Chest Tube Drainage 0 0 Chest Tube Right Lateral 0 0 Chest Drainage 20 Right Anterior Chest 20 Urine 2 Other: Voiding Method Toilet Urinal # Voids 1 2 - Constitutional General appearance: Present: cooperative, no acute distress - Respiratory Details: Lungs sounds diminished in the bases bilaterally, right greater than left, faint expiratory wheezes present. Respirations even, nonlabored. Currently on room air with oxygen saturation 96%. Able to achieve 3500 mL on his incentive spirometry. Right pleural chest tube to waterseal, no drainage in the last 24 hours, positive air leak present but less than yesterday. Positive subcu air present over the lateral right chest area. - Cardiovascular Details: S1, S2 present. Regular rate and rhythm, sinus rhythm on telemetry. Palpable peripheral pulses bilaterally. No edema present. No calf pain or tenderness noted. SCDs present. - Gastrointestinal Gastrointestinal Comment(s): Abdomen soft, nontender, nondistended. Active bowel sounds 4 quadrants. Tolerating diet. Positive bowel movement. - Genitourinary Genitourinary Comment(s): Continues to void clear, yellow urine. - Integumentary Integumentary Comment(s): Skin is warm and dry with evidence of good perfusion. Right chest tube site covered with dry intact dressing. - Neurologic Neurologic: Present: CNII-XII intact - Musculoskeletal Musculoskeletal: Present: gait normal, strength equal bilaterally - Psychiatric Psychiatric: Present: A&O x's 3, appropriate affect, intact judgment & insight - Allied health notes Allied health notes reviewed: nursing - Labs CBC & Chem 7: 08/24/17 05:40 08/24/17 05:40 - Imaging and Cardiology Chest x-ray: image reviewed Assessment and Plan (1) COPD (chronic obstructive pulmonary disease) Current Visit: Yes Status: Chronic Code(s): J44.9 - CHRONIC OBSTRUCTIVE PULMONARY DISEASE, UNSPECIFIED SNOMED Code(s): 88690822 (2) Pneumothorax, right Current Visit: Yes Status: Acute Code(s): J93.9 - PNEUMOTHORAX, UNSPECIFIED SNOMED Code(s): 486993970 (3) Alcohol abuse Current Visit: Yes Status: Chronic Code(s): F10.10 - ALCOHOL ABUSE, UNCOMPLICATED SNOMED Code(s): 61511398 (4) Hypertension Current Visit: Yes Status: Chronic Code(s): I10 - ESSENTIAL (PRIMARY) HYPERTENSION SNOMED Code(s): 36624838 (5) Tobacco dependence in remission Current Visit: No Status: Resolved Code(s): F17.201 - NICOTINE DEPENDENCE, UNSPECIFIED, IN REMISSION SNOMED Code(s): 535079108 Plan: 1. Chest tube to waterseal. Continue to monitor for resolution of air leak. 2. Encourage incentive spirometry use 10 times every hour while awake. Encourage continued smoking cessation. 3. Pain management with current medication regimen. 4. GI/DVT prophylaxis. 5. Continue folic acid, thiamine. One beer ordered each evening with dinner. 6. Bronchodilators, pulmonary management per Dr. Ireland. 7. Discharge planning progress. Will connect patient to Pneumostat device once available and discharge to home with plans for close monitoring and follow- up for resolution of air leak. Time with Patient: Greater than 30
--- NOTE | 2017-08-26 08:48 | XR ---
EXAMINATION TYPE: XR chest 2V DATE OF EXAM: 08/26/2017 COMPARISON: Prior chest x-ray 08/25/2017 HISTORY: Pneumothorax, chest tube TECHNIQUE: Frontal and lateral views of the chest are obtained. FINDINGS: Right-sided chest tube, subcutaneous emphysema are again noted. No sizable pneumothorax ev ident, minimal apical pneumothorax is stable on the right. Some minimal blunting of the costophrenic angle on the right is noted. Cardiac mediastinal silhouette, pulmonary vascularity and ana laura are stabl e. There are overlying cardiac leads. Perihilar increased density in the right is stable. IMPRESSION: Findings are similar to prior exam.
[2017-08-26 09:09] VITALS: BP 116/72; TEMP 97.5
[2017-08-26 11:18] VITALS: PULSE 92
[2017-08-26] MEDS: FOLIC ACID 1 MG TAB PO SCH (12:17)
[2017-08-26] MEDS: THIAMINE 100 MG TAB PO SCH (12:17)
[2017-08-26] MEDS: MULTIVITAMINS, THERA 1 EACH TAB PO SCH (12:19)
--- NOTE | 2017-08-26 12:42 | P.DS ---
Providers Date of admission: 08/20/17 05:41 Expected date of discharge: 08/26/17 Attending physician: Facundo Guthrie Consults: 08/20/17 13:10 Consult Physician Routine Consulting Provider: Dank Disla Consult Reason/Comments: pulmonary management post VATS Do you want consulting provider notified?: Yes Primary care physician: Stated None - Discharge Diagnosis(es) (1) COPD (chronic obstructive pulmonary disease) Current Visit: Yes Status: Chronic (2) Pneumothorax, right Current Visit: Yes Status: Acute (3) Alcohol abuse Current Visit: Yes Status: Chronic (4) Hypertension Current Visit: Yes Status: Chronic (5) Tobacco dependence in remission Current Visit: No Status: Resolved Hospital Course: FINAL DIAGNOSIS: 1. Recurrent right spontaneous pneumothorax, right apical blebs 2. COPD 3. History of hypertension 4. EtOH abuse with 3-4 beers per day 5. History of left shoulder dislocation 6. Postoperative continuous air leak PRINCIPAL PROCEDURE: 1. Right thoracoscopy with stapling of apical blebs and mechanical pleurodesis HISTORY OF PRESENT ILLNESS: This 56-year-old gentleman was initially seen by Dr. Guthrie in June 2017 with a right spontaneous pneumothorax. He was treated at that time with a right Thoravent which was removed as an outpatient with follow-up chest x-ray demonstrating no evidence of pneumothorax. Approximately 1 month later he was at work and had acute onset of chest pain and shortness of breath. He reported to his primary care physician's office where a chest x-ray was performed demonstrating a moderate size recurrent right pneumothorax. He chose not to the hospital at that time, and returned to his primary care physician's office a week later for repeat chest x-ray which demonstrated a partial resorption of the right-sided pneumothorax with only a small basilar pneumothorax and tiny apical pneumothorax remaining, which was a significant improvement. He also reported improvement in his shortness of breath. He was followed with serial chest x-rays which did demonstrate continued improvement in his pneumothorax. Eventually he had a computed tomography scan of the chest which demonstrated complete resolution of the pneumothorax but a large area of complex blebs in the apex of the right upper lobe. Due to the likelihood that he would continue to develop pneumothoraces, the patient decided to have surgery. Extensive discussions were had with the patient, risks and benefits were explained. He did consent to proceed with surgery. HOSPITAL COURSE: On 08/20/2017 the patient was brought to the hospital, taken to the preoperative area, prepared in the usual fashion, and subsequently taken to the operating room where Dr. Guthrie performed an elective right thoracoscopy with stapling of apical blebs and mechanical pleurodesis. Upon completion of surgery the patient was extubated, taken to the recovery room where he was monitored hemodynamically, and where he eventually was admitted to [address] [place] [address]. His oxygen was titrated down, he was tolerating oral intake, his pain was well controlled, and he was ambulating without assistance in the hallway. His chest tube was placed to waterseal, however did continue to demonstrate a persistent air leak despite full expansion of the lung. The patient wished to go home. A Pneumostat device was connected to the patient's chest tube, teaching was done regarding air leak monitoring, and the patient was ready to be discharged home on postoperative day #6. He is received written and verbal instruction regarding his medications, activity restrictions , signs and symptoms requiring physician notification, and follow-up appointments. He was instructed to call the nurse practitioner daily with updates on air leak, and will follow up for removal of the Pneumostat device. COMPLICATIONS: The patient's experienced postoperative continuous air leak, a potential outcome of this type of surgery given the patient's COPD history with multiple blebs, and was treated with chest tube followed by Pneumostat device. Patient Condition at Discharge: Stable Plan - Discharge Summary Discharge Rx Participant: No New Discharge Prescriptions: New Ibuprofen [Motrin] 600 mg PO Q6H tab Continue Multivitamin [Men's Multi-Vitamin] 1 tab PO DAILY Aspirin EC [Ecotrin Low Dose] 81 mg PO DAILY Verapamil HCl [Verapamil ER] 240 mg PO DAILY Ipratropium [place] [Atrovent Hfa] 2 puff INHALATION RT-TID PRN PRN Reason: Shortness Of Breath Albuterol Inhaler [Ventolin Hfa Inhaler] 2 puff INHALATION RT-Q6H PRN PRN Reason: Shortness Of Breath Discharge Medication List Multivitamin [Men's Multi-Vitamin] 1 tab PO DAILY 07/17/16 [History] Aspirin EC [Ecotrin Low Dose] 81 mg PO DAILY 08/17/17 [History] Ipratropium [place] [Atrovent Hfa] 2 puff INHALATION RT-TID PRN 08/17/17 [ History] Verapamil HCl [Verapamil ER] 240 mg PO DAILY 08/17/17 [History] Albuterol Inhaler [Ventolin Hfa Inhaler] 2 puff INHALATION RT-Q6H PRN 08/20/17 [ History] Ibuprofen [Motrin] 600 mg PO Q6H tab 08/26/17 [Rx] Follow up Appointment(s)/Referral(s): Dank Disla MD [STAFF PHYSICIAN] - 09/03/17 2:30 pm Facundo Guthrie MD [STAFF PHYSICIAN] - 09/10/17 1:45 pm Patient Instructions/Handouts: Chronic Lung Disease and Infection Prevention ( DC), Video Assisted Thoracoscopic Surgery (DC) Activity/Diet/Wound Care/Special Instructions: DISCHARGE INSTRUCTIONS: 1. No driving for 2 weeks, or until physician gives their ok. 2. The patient should sleep in their own bed, no medical bed needed. 3. No lifting, pushing, or pulling more than 10 pounds for 2 weeks. The physician will advise of any restriction changes. 4. Continue pain control per as needed orders. 5. Continue with incentive spirometry until otherwise directed by the physician. 6. May shower daily. No tub baths, hot tubs. Please cover chest tube site with plastic. 7. Routine incision care. No powders, lotions, ointments on incisions. 8. Please call surgeon/FIBER GLASS WORKER for temp greater than 101 F or purulent drainage from incisions. 9. Call FIBER GLASS WORKER daily with updates regarding air leak. Esther . Tomer [phone] Discharge Disposition: HOME SELF-CARE
[2017-08-26] MEDS ORDERED: IBUPROFEN 600 MG TAB PO SCH (13:00)
== END 2017-08-26 12:37 | disposition home or self-care (01) | DRG 165 ==
LOC: 2ORMAIN 05:41 → 6SEL 12:15
PROVIDERS: ADMIT Thoracic Surgery (Cardiothoracic Vascular Surgery); ATTEND Thoracic Surgery (Cardiothoracic Vascular Surgery)
PROC: 0W9940Z Drainage of Right Pleural Cavity with Drainage Device, Percutaneous Endoscopic Approach (ICD-10-PCS; 2017-08-20)
PROC: 0B5N4ZZ Destruction of Right Pleura, Percutaneous Endoscopic Approach (ICD-10-PCS; 2017-08-20)
PROC: 0BQC4ZZ Repair Right Upper Lung Lobe, Percutaneous Endoscopic Approach (ICD-10-PCS; principal; 2017-08-20 07:30)
DX: J93.11 Primary spontaneous pneumothorax (principal); J43.0 Unilateral pulmonary emphysema [MacLeod's syndrome]; F10.10 Alcohol abuse, uncomplicated; F17.201 Nicotine dependence, unspecified, in remission; I10 Essential (primary) hypertension; J95.812 Postprocedural air leak; T81.82XA Emphysema (subcutaneous) resulting from a procedure, initial encounter; Z79.82 Long term (current) use of aspirin; Z79.899 Other long term (current) drug therapy; Z71.6 Tobacco abuse counseling; Z80.8 Family history of malignant neoplasm of other organs or systems; Y83.8 Other surgical procedures as the cause of abnormal reaction of the patient, or of later complication, without mention of misadventure at the time of the procedure; Y92.239 Unspecified place in hospital as the place of occurrence of the external cause
CPT/HCPCS: 71045; 71046; 80053; 85025; 86850; 86900; 86901; 88307; 93005; 94640; 94760

== ENCOUNTER → 2021-09-27 | Outpatient (CLI) | payer OTHER ==
[~2021-09-27] MED LIST changes: +BEBTELOVIMAB (EUA) 175 MG/2 ML VIAL IV ONE; +SODIUM CHLORIDE 0.9% 500 ML 500 ML in EMPTY BAG 1 BAG IV PRN; -ceFAZolin IN SWFI 2 GM/20 ML SYRINGE IVP ONE
== END ==
LOC: PROCWHC3 12:35
PROVIDERS: ATTEND Physician Assistant Medical
DX: Z53.9 Procedure and treatment not carried out, unspecified reason (principal)

== ENCOUNTER 2024-08-10 17:21 | Emergency (ER) | payer OTHER ==
[2024-08-10] MEDS: LIDOCAINE 1% INJ 10MG/ML (20 ML MDV) SQ ONE (18:18)
--- NOTE | 2024-08-10 18:57 | ED ---
Wound/Laceration HPI - General Chief Complaint: Wound/Laceration Stated Complaint: L foot lac Time Seen by Provider: 08/10/24 18:12 Source: patient, EMS, RN notes reviewed Mode of arrival: EMS Limitations: no limitations - History of Present Illness Initial Comments: 63-year-old male presented the ER via EMS for evaluation of a laceration. Patient reports that he is working on building a wooden box and went to flip the box to place a joist jacquard loom card changer when the box and accidentally hit his left patel. He notes a laceration to his distal left patel. He noticed a large amount of bleeding which prompted him to call 911. He is not on blood thinners. Tetanus is up-to-date. Patient states PD arrived first and placed a tourniquet on left lower extremity. Tourniquet was in place for about 15 minutes. They also placed hemostatic powder. He denies any paresthesias to the left lower extremity or limited range of motion. No other injuries or complaints at this time. Per EMS, patient lost approximately 1 L of blood. - Related Data Home Medications Medication Instructions Recorded Confirmed Multivitamin [Men's Multi-Vitamin] 1 tab PO DAILY 07/17/16 08/20/17 Aspirin EC [Ecotrin Low Dose] 81 mg PO DAILY 08/17/17 08/20/17 Ipratropium [place] [Atrovent Hfa] 2 puff INHALATION RT-TID PRN 08/17/17 08/20/17 Verapamil HCl [[place] Sr] 240 mg PO DAILY 08/17/17 08/20/17 Albuterol Inhaler [Ventolin Hfa 2 puff INHALATION RT-Q6H PRN 08/20/17 08/20/17 Inhaler] Previous Rx's Medication Instructions Recorded Ibuprofen [Motrin] 600 mg PO Q6H tab 08/26/17 Amoxic-Pot Clav 875-125Mg 1 tab PO Q12HR #20 tab 08/10/24 [Augmentin 875-125] Allergies Allergy/AdvReac Type Severity Reaction Status Date / Time No Known Allergies Allergy Verified 08/10/24 17:27 Review of Systems ROS Statement: Those systems with pertinent positive or pertinent negative responses have been documented in the HPI. ROS Other: All systems not noted in ROS Statement are negative. Past Medical History Past Medical History: COPD, Hypertension Additional Past Medical History / Comment(s): "FAST PULSE." RT SPONTANEOUS PNEUMOTHORAX 06/18/17, THEN LEAK 07/30/17. History of Any Multi-Drug Resistant Organisms: None Reported Past Surgical History: Orthopedic Surgery Additional Past Surgical History / Comment(s): LT shoulder surgery for dislocation, 07/2016 colonoscopy/benign polypectomy. RT CHEST TUBE. Past Anesthesia/Blood Transfusion Reactions: No Reported Reaction Past Psychological History: No Psychological Hx Reported Smoking Status: Former smoker Past Alcohol Use History: Daily Past Drug Use History: None Reported - Past Family History Father Family Medical History: Cancer Additional Family Medical History / Comment(s): Father of metastatic bone cancer at the age of 61 yrs. Mother Family Medical History: No Reported History Additional Family Medical History / Comment(s): Mother was healthy and lived to be 89yrs old. General Exam Limitations: no limitations General appearance: alert, in no apparent distress Respiratory exam: Present: normal lung sounds bilaterally. Absent: respiratory distress, wheezes, rales, rhonchi, stridor Cardiovascular Exam: Present: regular rate, normal rhythm, normal heart sounds. Absent: systolic murmur, diastolic murmur, rubs, gallop, clicks Extremities exam: Present: normal inspection, full ROM, normal capillary refill (2+ bilateral DP pulses). Absent: tenderness, pedal edema, joint swelling, calf tenderness Neurological exam: Present: alert, oriented X3, CN II-XII intact Skin exam: Present: warm, dry, intact, normal color, other (5 cm flap laceration noted to left distal patel. Minimal oozing of blood. Deep structures intact.) Course Vital Signs 08/10/24 08/10/24 17:22 21:04 Temperature 98.2 F 97.7 F Pulse Rate 107 H 78 Respiratory 20 18 Rate Blood Pressure 168/91 144/80 O2 Sat by Pulse 97 95 Oximetry Procedures - Laceration Laceration #1 Consent Obtained: verbal consent Indication: laceration Site: lower extremity Size (cm): 5 Description: flap Depth: simple, single layer Anesthetic Used: lidocaine 1%, without epi Anesthesia Technique: local infiltration Amount (mls): 6 Pre-repair: wound explored, irrigated extensively, deep structures intact Type of Sutures: nylon Size of Sutures: 5-0 Number of Sutures: 8 Technique: simple, interrupted Patient Tolerated Procedure: well Medical Decision Making - Medical Decision Making Was pt. sent in by a medical professional or institution (YANY Buckley, HEALTHCARE ADMINISTRATIVE ASSISTANT, urgent care, hospital, or penitentiary...) When possible be specific @ -No Did you speak to anyone other than the patient for history (EMS, parent, family, police, friend...)? What history was obtained from this source @ -No Did you review nursing and triage notes (agree or disagree)? Why? @ -I reviewed and agree with nursing and triage notes Were old charts reviewed (outside hosp., previous admission, EMS record, old EKG, old radiological studies, urgent care reports/EKG's, penitentiary records)? Report findings @ -No old charts were reviewed Differential Diagnosis (chest pain, altered mental status, abdominal pain women, abdominal pain men, vaginal bleeding, weakness, fever, dyspnea, syncope, headache, dizziness, GI bleed, back pain, seizure, CVA, palpatations, mental health, musculoskeletal)? @ -Laceration, abrasion, contusion, avulsion, foreign body this list is not meant to be all-inclusive EKG interpreted by me (3pts min.). @ -None done X-rays interpreted by me (1pt min.). @ -None done CT interpreted by me (1pt min.). @ -None done U/S interpreted by me (1pt. min.). @ -None done What testing was considered but not performed or refused? (CT, X-rays, U/S, labs)? Why? @ -None What meds were considered but not given or refused? Why? @ -None Did you discuss the management of the patient with other professionals (professionals i.e. YANY Buckley, HEALTHCARE ADMINISTRATIVE ASSISTANT, lab, RT, psych nurse, clinical social work aide, pathology laboratory director, teacher, retail loss prevention officer, rehabilitation case coordinator)? Give summary @ -No Was smoking cessation discussed for >3mins.? @ -No Was critical care preformed (if so, how long)? @ -No Were there social determinants of health that impacted care today? How? (Homelessness, low income, unemployed, alcoholism, drug addiction, transportation, low edu. Level, literacy, decrease access to med. care, longterm, rehab)? @ -No Was there de-escalation of care discussed even if they declined (Discuss DNR or withdrawal of care, Hospice)? DNR status @ -No What co-morbidities impacted this encounter? (DM, HTN, Smoking, COPD, CAD, Cancer, CVA, ARF, Chemo, Hep., AIDS, mental health diagnosis, sleep apnea, morbid obesity)? @ -None Was patient admitted / discharged? Hospital course, mention meds given and route, prescriptions, significant lab abnormalities, going to OR and other pertinent info. @ -Discharge. 63-year-old male presented the ER via EMS for evaluation of left patel laceration. Exam remarkable for a 5 cm flap laceration to left distal patel. Minimal oozing blood. Patient is neurovascularly intact. Deep structures intact.patient has full active range of motion of left ankle and foot. Tetanus up-to-date. Wound irrigated with iodine and sterile water. Wound closed, see note above. Given mechanism of injury patient will be started on Augmentin for infection prophylaxis. As reported by EMS patient lost approximately 1 L of blood, CBC obtained and showing a stable hemoglobin of 14.5. Upon reevaluation, patient resting comfortably in exam room no signs of acute distress. I advised suture removal in 10 to 14 days. Suture wound care discussed. Patient will be discharged in stable condition with follow-up to PCP. Return parameters disc ussed. Patient verbally expressed understanding and agreement with care plan. Case discussed with ED attending, Dr. England. Undiagnosed new problem with uncertain prognosis? @ -No Drug Therapy requiring intensive monitoring for toxicity (Heparin, Nitro, Insulin, Cardizem)? @ -No Were any procedures done? @ -Yes Diagnosis/symptom? @ -Laceration Acute, or Chronic, or Acute on Chronic? @ -Acute Uncomplicated (without systemic symptoms) or Complicated (systemic symptoms)? @ -Uncomplicated Side effects of treatment? @ -No Exacerbation, Progression, or Severe Exacerbation? @ -No Poses a threat to life or bodily function? How? (Chest pain, [place], [place], pneumonia, PE, COPD, DKA, ARF, appy, cholecystitis, CVA, Diverticulitis, Homicidal, Suicidal, threat to staff... and all critical care pts) @ -No - Lab Data Result diagrams: 08/10/24 17:30 Lab Results 08/10/24 Range/Units 17:30 WBC 12.8 H (3.8-10.6) k/uL RBC 4.67 (4.30-5.90) m/uL Hgb 14.5 (13.0-17.5) gm/dL Hct 44.4 (39.0-53.0) % MCV 95.1 (80.0-100.0) fL MCH 31.0 (25.0-35.0) pg MCHC 32.6 (31.0-37.0) g/dL RDW 12.8 (11.5-15.5) % Plt Count 344 (150-450) k/uL MPV 7.8 Neutrophils % 69 % Lymphocytes % 16 % Monocytes % 7 % Eosinophils % 5 % Basophils % 1 % Neutrophils # 8.9 H (1.3-7.7) k/uL Lymphocytes # 2.0 (1.0-4.8) k/uL Monocytes # 0.9 (0-1.0) k/uL Eosinophils # 0.7 (0-0.7) k/uL Basophils # 0.1 (0-0.2) k/uL Disposition Clinical Impression: Laceration Disposition: HOME SELF-CARE Condition: Stable Instructions (If sedation given, give patient instructions): Care For Your Stitches (ED) Additional Instructions: Have sutures removed in 10-14 days. Prescriptions: Amoxic-Pot Clav 875-125Mg [Augmentin 875-125] 1 tab PO Q12HR #20 tab Is patient prescribed a controlled substance at d/c from ED?: No Referrals: Jason Reynolds MD [Primary Care Provider] - 1-2 days Time of Disposition: 16:07
[2024-08-10 20:06] LABS: Basophils # (A) 0.1 k/uL (0-0.2); Basophils % (A) 1 %; Eosinophils # (A) 0.7 k/uL (0-0.7); Eosinophils % (A) 5 %; HCT 44.4 % (39.0-53.0); HGB 14.5 gm/dL (13.0-17.5); Lymphocytes % (A) 16 %; MCHC 32.6 g/dL (31.0-37.0); MCV 95.1 fL (80.0-100.0); Mean Platelet Volume 7.8; Monocytes # (A) 0.9 k/uL (0-1.0); Monocytes % (A) 7 %; Neutrophils # (A) 8.9 k/uL (1.3-7.7); Neutrophils % (A) 69 %; Platelet Count 344 k/uL (150-450); RBC 4.67 m/uL (4.30-5.90); RDW 12.8 % (11.5-15.5); WBC 12.8 k/uL (3.8-10.6)
[2024-08-10 21:06] VITALS: BP 144/80; PULSE 78; RESP 18; TEMP 97.7
[2024-08-10] MEDS: AMOXIC-POT CLAV 875-125MG 1 EACH TAB PO STA (21:09)
== END 2024-08-10 21:14 | disposition home or self-care (01) ==
LOC: EC 17:21
DX: S91.312A Laceration without foreign body, left foot, initial encounter (principal); Z87.891 Personal history of nicotine dependence; W22.8XXA Striking against or struck by other objects, initial encounter
CPT/HCPCS: 36415; 85025; 99284; 12002; J2003

== ENCOUNTER → 2024-09-22 | Outpatient (CLI) | payer OTHER ==
--- NOTE | 2024-09-22 07:32 | CTL ---
EXAMINATION TYPE: CT Low Dose Lung DATE OF EXAM ORDERED: 09/22/2024 COMPARISON: Prior chest CT August 17, 2017 CLINICAL INDICATION: Male, 64 years old with history of Z12.2 SCREENING Z87.891 FORMER SMOKER; [facility], P revious smoker for 30 years, quit in 2016. H/O COPD, Lung cancer screening, History of Smoking/tobacc o use. TECHNIQUE: Low dose computed tomography scan was performed through the chest at 1 mm thick sections a nd reconstructed images in multiple planes at 1 mm and [address] DLP: 142.[address] CTDI: 3.6 mGy Automated exposure control for dose reduction was used. CT DIAGNOSTIC QUALITY: Satisfactory FINDINGS: Nodules: There is calcified 2 to 3 mm right mid lung pulmonary nodule axial image 140. No significant new or enlarging greater than 4 mm noncalcified pulmonary nodules. LUNGS: COPD: Severity: Moderate Fibrosis: Severity: Focal linear scarring anterior right upper lobe Lymph nodes: None. Other findings: None. RIGHT PLEURAL SPACE: Effusion: None Calcification: None Thickening: None Pneumothorax: None LEFT PLEURAL SPACE: Effusion: None Calcification: None Thickening: None Pneumothorax: None HEART: Heart Size: Normal Coronary Calcification: Moderate Pericardial Effusion: Small to tiny OTHER FINDINGS: Upper abdomen: Visualized liver is heterogeneously hypodense consistent with diffuse fatty infiltrati ve hepatocellular disease. Bony thorax: Multilevel spurring and bridging osteophytes in the thoracic spine are seen. Surgical ch anges left glenoid. Supraclavicular region: None Other: None IMPRESSION: No significant new or enlarging greater than [address] LUNG RAD AND CT CHEST RECOMMENDATION: Lung-Rad 2 Benign Appearance or Behavior: Continue annual sc reening with LDCT in 12 months. S Modifier (other clinically significant findings): None [facility], , 09/22/2024 7:30 AM
== END | disposition home or self-care (01) ==
LOC: RADCTMAIN 06:36
PROVIDERS: ATTEND Family Medicine
DX: Z12.2 Encounter for screening for malignant neoplasm of respiratory organs (principal); Z87.891 Personal history of nicotine dependence
CPT/HCPCS: 71271